=== PATIENT | female | born 1995 | race Caucasian/White ===

== ENCOUNTER → 2021-04-21 12:29 | Outpatient (CLI) | payer MEDICAID, SELFPAY ==
[2021-04-21 13:01] LABS: Absolute Lymphocyte Count 1.35 X10^3/uL (0.83-4.51); Absolute Neutrophil Count 5.9 X10^3/uL (2.0-7.7); Basophil# 0.02 X10^3/uL; Basophil% 0.3 % (0-1); Eosinophil# 0.02 X10^3/uL; Eosinophils% 0.3 % (0-5); Hematocrit 38.8 % (37-47); Hemoglobin 13.3 g/dL (12.0-15.0); Lymphocyte # 1.35 X10^3/ul (0.83-4.51); Lymphocyte % 17.4 % (19-41); Mean Corp Hgb Conc 34.3 g/dL (32-36); Mean Corpuscular Hgb 29.4 pg (27.0-32.0); Mean Corpuscular Volume 85.7 fL (81-99); Mean Platelet Vol. 11.3 fl (6.2-12.0); Monocyte# 0.46 X10^3/uL; Monocyte% 5.9 % (0-10); NRBC Flagged by Analyzer 0 % (0-5); Neutrophil # 5.86 X10^3/uL (2.7-7.7); Neutrophil % 75.7 % (47-70); Platelet Count 212 K/mm3 (150-450); RBC Distribution Width CV 12.4 % (11.6-14.6); RBC Distribution Width SD 38.5 fl (35.1-43.9); Red Blood Count 4.53 M/mm3 (4.2-5.4); White Blood Count 7.7 K/mm3 (4.4-11.0)
[2021-04-21 14:17] LABS: HIV - WCH Non-Reactive (Nonreactive); Hepatitis B Surface Antigen Non-Reactive (Nonreactive); Hepatitis C Antibody Non-Reactive (Nonreactive); Rubella IgG Non-Reactive (Nonreactive); Syphilis Antibodies Non-reactive
[2021-04-21 15:31] LABS: Amphetamine Urine VISTA NEGATIVE (<1000 ng/mL); Barbiturate Urine VISTA NEGATIVE (< 200 ng/mL); Benzodiazepine Urine VISTA NEGATIVE (< 200 ng/mL); Cocaine Urine VISTA NEGATIVE (< 300 ng/mL); Ecstacy Urine VISTA NEGATIVE (< 500 ng/mL); Methadone Urine VISTA NEGATIVE (< 300 ng/mL); PCP Urine VISTA NEGATIVE (< 25 ng/mL); THC Urine VISTA NEGATIVE (< 50 ng/mL); Vista UDS pH Range 5
[2021-04-22 16:26] LABS: V-Zoster IgG (Immunity) 860 index (Immune >165)
[2021-04-25 22:06] LABS: Chlamydia By Nucleic Acid AMP Negative (Negative)
[2021-04-25 23:20] LABS: Gonococcus By Nucleic Acid AMP Negative (Negative)
[2021-04-28 21:39] LABS: HPV Reflexed? NOT INDICATED
== END ==
PROVIDERS: Referring Provider Obstetrics & Gynecology; Visit Provider Obstetrics & Gynecology
DX: Z34.90 Encounter for supervision of normal pregnancy, unspecified, unspecified trimester (principal); Z28.3 Underimmunization status
CPT/HCPCS: 36415; 80307; 85025; 86703; 86762; 86780; 86787; 86803; 86850; 86900; 86901; 87086; 87088; 87340; 87491; 87591; 88175; G0145

== ENCOUNTER 2021-05-19 12:18 | Outpatient (CLI) | payer MEDICAID, SELFPAY ==
[2021-05-19 13:24] LABS: NATERA MAILED SPECIMEN
== END 2021-05-19 23:59 | disposition short-term general hospital (02) ==
LOC: LAB 12:21
PROVIDERS: Referring Provider Obstetrics & Gynecology; Visit Provider Obstetrics & Gynecology
DX: Z34.81 Encounter for supervision of other normal pregnancy, first trimester (principal); Z31.430 Encounter of female for testing for genetic disease carrier status for procreative management
CPT/HCPCS: 36415

== ENCOUNTER 2021-05-26 16:32 | Outpatient (CLI) | payer MEDICAID, SELFPAY ==
--- NOTE | 2021-05-26 | CER_PTH ---
PATIENT: DARLENE CHAUDHARI LOC: [facility]#:[id number] AGE/SX: 26/F ROOM: RE05/26/[address]: Dr. Emily Diamond DO : 1995 BED: DIS: 05/26/2021 SPEC #: [id number] RECD: 05/26/21 16:27 STATUS: JESSI EREN #: [id number] MARK: 05/26/21 00:[address]: Emily Diamond DEPT: SURGICAL PATHOLOGY RECD BY: Dl Bennett ENTERED: 05/27/21 08:13 SP TYPE: CERV OTHR DR: No Primary Care Phys Tissues: Uterine cervix, NOS Procedures: Surgery Specimen Level IV HEADER OPERATION: Colposcopy PRE-OP DIAGNOSIS: LGSIL TISSUE SUBMITTED: 1 o?clock MICROSCOPIC DIAGNOSIS Cervix, biopsy: Suspicious for focal HPV change. Squamous metaplasia. See comment. AM:frankie 05/30/2021 COMMENT Results from immunohistochemistry ([id number]) for surrogate HPV marker (p16) will be reported separately. Case has been reviewed in consultation with Dr. Baltazar who concurs with the above diagnosis. IDC:SJ MICROSCOPIC DESCRIPTION Slides are reviewed. GROSS DESCRIPTION Received is one container labeled with the patient's name and not further designated. The specimen consists of one irregular fragment of light galvez soft tissue that measures 0.3 x 0.3 x 0.1 cm. The specimen is totally submitted in one cassette. / SAMREEN:frankie 05/27/2021 TC:5 CPT: 24290
--- NOTE | 2021-05-26 | IMM_PTH ---
PATIENT: DARLENE CHAUDHARI LOC: [facility] U#:[id number] AGE/SX: 26/F ROOM: RE05/26/[address]: Dr. Emily Diamond DO : 1995 BED: DIS: 05/26/2021 SPEC #: [id number] RECD: 05/30/21 13:00 STATUS: JESSI EREN #: [id number] MARK: 05/26/21 00:[address]: Emily Diamond DEPT: IMMUNOHISTOCHEMISTRY RECD BY: Sandra Thomas ENTERED: 05/30/21 13:01 SP TYPE: IMMUNO OTHR DR: Nneka Primary Care Phys Tissues: Uterine cervix, NOS Procedures: p16 (initial) KI-67 (add) PHYSICIAN & INSTITUTION [place] [id number] SPECIMEN INFORMATION: Tissue Source: Cervix at 1 o?clock Clinical Info: SYLVESTERSIL Specimen Number: [id number] CPT code: 66387, 70295 METHODOLOGY: Deparaffinized sections of prefer/formalin-fixed tissue or PAP/DQ stained slides are incubated with monoclonal/polyclonal antibodies/oligonucleotide probes. Localization is made via biotin free immunoperoxidase method. Appropriate controls are performed and reacted as expected. Results on target cell population are indicated in the following table: RESULTS: ANTIBODY / CLONE RESULT P16 (E6H4) positive, rare cell Ki-67 (30-9) negative These tests were developed and their performance characteristics determined by [facility]. They may not have been cleared or approved by the U.S. Food and Drug Administration. The FDA has determined that such clearance or approval is not necessary. The above immunohistochemical/dualISH markers are ordered and reviewed by the Pathologist. INTERPRETATION: Cervix at 1 o?clock, biopsy: Suggestive of focal HPV change. AM:frankie 05/31/2021
== END 2021-05-26 23:59 | disposition short-term general hospital (02) ==
LOC: LABSPEC 16:34
PROVIDERS: Visit Provider Obstetrics & Gynecology
DX: N87.9 Dysplasia of cervix uteri, unspecified (principal)
CPT/HCPCS: 88305; 88341; 88342

== ENCOUNTER → 2021-09-08 | Outpatient (CLI) | payer MEDICAID, SELFPAY ==
[2021-09-08 10:11] LABS: Absolute Lymphocyte Count 1.35 X10^3/uL (0.83-4.51); Absolute Neutrophil Count 6.8 X10^3/uL (2.0-7.7); Basophil# 0.02 X10^3/uL; Basophil% 0.2 % (0-1); Eosinophil# 0.01 X10^3/uL; Eosinophils% 0.1 % (0-5); Hematocrit 35.9 % (37-47); Hemoglobin 11.5 g/dL (12.0-15.0); Lymphocyte # 1.35 X10^3/ul (0.83-4.51); Lymphocyte % 15.2 % (19-41); Mean Corpuscular Hgb 29.6 pg (27.0-32.0); Mean Corpuscular Volume 92.3 fL (81-99); Mean Platelet Vol. 11.4 fl (6.2-12.0); Monocyte# 0.61 X10^3/uL; Monocyte% 6.9 % (0-10); NRBC Flagged by Analyzer 0 % (0-5); Neutrophil # 6.82 X10^3/uL (2.7-7.7); Platelet Count 168 K/mm3 (150-450); RBC Distribution Width CV 13.1 % (11.6-14.6); Red Blood Count 3.89 M/mm3 (4.2-5.4); White Blood Count 8.9 K/mm3 (4.4-11.0)
[2021-09-08 10:28] LABS: Glucose Challenge Gest 1H 50g 115 mg/dL (70-140)
== END | disposition home or self-care (01) ==
LOC: LAB 10:00
PROVIDERS: Referring Provider Obstetrics & Gynecology; Visit Provider Obstetrics & Gynecology
DX: Z34.90 Encounter for supervision of normal pregnancy, unspecified, unspecified trimester (principal)
CPT/HCPCS: 36415; 82950; 85025

== ENCOUNTER → 2021-11-11 | Outpatient (CLI) | payer MEDICAID, SELFPAY | END | disposition home or self-care (01) | PROVIDERS: Referring Provider Obstetrics & Gynecology; Visit Provider Obstetrics & Gynecology | DX: Z34.90 Encounter for supervision of normal pregnancy, unspecified, unspecified trimester (principal) | CPT/HCPCS: 87081 ==

== ENCOUNTER 2021-12-02 20:25 | Inpatient (IN) | payer MEDICAID, SELFPAY ==
[2021-12-02 19:53] VITALS: BP 131/88; PULSE 111
[2021-12-02 20:01] VITALS: BMI 30.1
[2021-12-02 20:24] LABS: ROM Internal Control Test YES-OK TO RESULT pt. (Internal QC)
[2021-12-02 20:25] LABS: ROM Patient Test POSITIVE (Negative)
[2021-12-02 20:41] VITALS: TEMP 36.7
[2021-12-02 20:42] VITALS: BP 123/88; PULSE 112
[2021-12-02] MEDS: Lactated Ringers 1,000 ML 50 ML IV (21:14)
[2021-12-02] MEDS: Oxytocin 30 units/NS 500 ml 30 UNITS/500 ML IV.SOLN IV (21:15)
[2021-12-02 21:34] LABS: Absolute Lymphocyte Count 1.46 X10^3/uL (0.83-4.51); Absolute Neutrophil Count 7.1 X10^3/uL (2.0-7.7); Basophil# 0.01 X10^3/uL; Basophil% 0.1 % (0-1); Eosinophil# 0.02 X10^3/uL; Eosinophils% 0.2 % (0-5); Hematocrit 35.9 % (37-47); Hemoglobin 11.7 g/dL (12.0-15.0); Lymphocyte # 1.46 X10^3/ul (0.83-4.51); Lymphocyte % 15.5 % (19-41); Mean Corp Hgb Conc 32.6 g/dL (32-36); Mean Corpuscular Volume 89.1 fL (81-99); Mean Platelet Vol. 13.4 fl (6.2-12.0); Monocyte# 0.74 X10^3/uL; Monocyte% 7.8 % (0-10); NRBC Flagged by Analyzer 0 % (0-5); Neutrophil # 7.14 X10^3/uL (2.7-7.7); Neutrophil % 75.8 % (47-70); Platelet Count 136 K/mm3 (150-450); RBC Distribution Width CV 14.1 % (11.6-14.6); RBC Distribution Width SD 45.1 fl (35.1-43.9); Red Blood Count 4.03 M/mm3 (4.2-5.4); White Blood Count 9.4 K/mm3 (4.4-11.0)
[2021-12-02 22:05] VITALS: BP 128/82; PULSE 96; TEMP 36.9
[2021-12-02 23:32] VITALS: BP 119/69; PULSE 90; TEMP 36.1
[2021-12-03] VITALS (55 sets, daily range): BP systolic 97–145; BP diastolic 51–86; PULSE 80–118; RESP 16; TEMP 36.2–37.6; O2SAT 97–100
[2021-12-03] MEDS: fentaNYL 100 MCG/2 ML Ampul IV (02:09)
[2021-12-03] MEDS: LACTATED RINGERS 500 ML 999 ML IV (03:06)
[2021-12-03] MEDS: fentaNYL-bupivacaine (epidural) 100 ML BAG EPIDURAL (04:00)
[2021-12-03] MEDS: Lactated Ringers 1,000 ML 50 ML IV (06:48)
--- NOTE | 2021-12-03 07:20 | HP.PCM.OB_ITS ---
HPI - General General Date of Admission: 12/02/21 HPI Narrative DARLENE ANN, is a 26 y/o G1 @ 39 weeks 6 days who presents to L&D with rupture of membranes. She is not peyton. GBS is negative. She initially was found to be 2 cm dilated per nurse. Maternal Data Information NOA Calculator Estimated Delivery Date Method Current WG Current Estimate 12/03/21 LMP (Uncertain) 40w 0d PFSH PFSH Medical History Pyelectasis of fetus on ultrasound Home Medications multivitamin no.47-iron fum 27 mg-folate no.1 1 mg-dha 300 mg capsule (PNV-DHA) cap PO 04/15/21 [History Last Taken 12/01/21 21:00] Allergy/AdvReac Type Severity Reaction Status Date / Time No Known Allergies Allergy Verified 12/02/21 20:04 Family History Other CHF (congestive heart failure) Diabetes Surgical History H/O oral surgery Social History household members: significant other current occupational status: employed current occupation: [employer] pets and animals: Yes Smoking Status: Never smoker second hand exposure: No alcohol intake: current alcohol intake frequency: holidays/special occasions only details: not while substance use type: does not use caffeine: Yes seatbelt use: always do you feel safe at home: Yes additional social history: Aissatou?: Baltazar History 1 Elective abortions Hx Para 0 Spontaneous abortions Hx # Term Pregnancies Ectopic pregnancies Hx # Pregnancies Multiple births # of living children Visit Details Expected Delivery Route/Plan Labor Preferences- CB/BF classes: encouraged labor support person: Baltazar labor intervention preferences: [] pain management options preferred: limited intervention cut cord/dad catch: maybe : yes PP control planned: discussed discussed possible routes of delivery and associated risks: [] special requests: [] Plans Covid status: possible immunity counseled regarding risk of covid in vs vaccination and declined vaccination Flu vaccine: declined Tdap vaccine: declines Rhogam: na LARC form signed: yes movement and labor precautions reviewed. Problem list reviewed and updated with the most current plan of care details and appropriate orders placed. Relevant counseling for the gestational age provided. Continue routine care and follow up unless otherwise noted in visit notes/problem list details OB Flowsheet Initial Weight: 145 lb Date -?-?-?-?-?-?-?-?-?-?-?-?- EGA Weight BP Urine Prot -?-?-?-?-?-?-?-?-?-?-?-?- Glucose FHR FuHt Pres Dilation -?-?-?-?-?-?-?-?-?-?-?-?- Effaced St Visit Note 04/21/21 -?-?-?-?-?-?-?-?-?-?-?-?- 7w 5d 145 lb (+0 oz) 120/70 -?-?-?-?-?-?-?-?-?-?-?-?- 160 -?-?-?-?-?-?-?-?-?-?-?-?- SM- CRL cons wit h LMP SM- CRL 1.7cm cons with LMP 05/19/21 -?-?-?-?-?-?-?-?-?-?-?-?- 11w 5d 144 lb (-16 oz) 120/80 2+ -?-?-?-?-?-?-?-?-?-?-?-?- Negative 168 -?-?-?-?-?-?-?-?-?-?-?-?- JV- no cramping or bleeding. pt will do her NIPT today along with other labs. 05/26/21 -?-?-?-?-?-?-?-?-?-?-?-?- 12w 5d 141 lb (-4 lb) 132/88 Negative -?-?-?-?-?-?-?-?-?-?-?-?- Negative 135 -?-?-?-?-?-?-?-?-?-?-?-?- JV- here for col po. see procedure note 07/14/21 -?-?-?-?-?-?-?-?-?-?-?-?- 19w 5d 148 lb 4 oz (+3 lb 4 oz) 118/78 Negative -?-?-?-?-?-?-?-?-?-?-?-?- Negative 145 -?-?-?-?-?-?-?-?-?-?-?-?- JV- no cramping or spotting, no complaints. needs followup anatomy scan for dilated ureter 08/12/21 -?-?-?-?-?-?-?-?-?-?-?-?- 23w 6d 157 lb 8 oz (+12 lb 8 oz) 100/64 Negative -?-?-?-?-?-?-?-?-?-?-?-?- Negative 161 24 -?-?-?-?-?-?-?-?-?-?-?-?- JV- ++ mov ement, plan for rpt scan at 30 weeks of kidneys. gct ordered 09/08/21 -?-?-?-?-?-?-?-?-?-?-?-?- 27w 5d 163 lb (+18 lb) 110/72 -?-?-?-?-?-?-?-?-?-?-?-?- 147 28 -?-?-?-?-?-?-?-?-?-?-?-?- -NO VB, LOF. [facility] wk [facility] Still considering tdap 09/22/21 -?-?-?-?-?-?-?-?-?-?-?-?- 29w 5d 162 lb (+17 lb) 126/70 Negative -?-?-?-?-?-?-?-?-?-?-?-?- Negative 144 30 -?-?-?-?-?-?-?-?-?-?-?-?- MH-No Vb, LOF. R are [facility]. Reassured. Growth US 09/2910/06/21 -?-?-?-?-?-?-?-?-?-?-?-?- 31w 5d 166 lb (+21 lb) 126/88 -?-?-?-?-?-?-?-?-?-?-?-?- 145 32 Cephalic -?-?-?-?-?-?-?-?-?-?-?-?- SM- no vb lof go od fm no regular ctx 10/20/21 -?-?-?-?-?-?-?-?-?-?-?-?- 33w 5d 171 lb (+26 lb) 130/80 Negative -?-?-?-?-?-?-?-?-?-?-?-?- Negative 150 34 Cephalic -?-?-?-?-?-?-?-?-?-?-?-?- JV- no lof, vagi nal bleeding, or dec fm 11/04/21 -?-?-?-?-?-?-?-?-?-?-?-?- 35w 6d 175 lb (+30 lb) 110/82 -?-?-?-?-?-?-?-?-?-?-?-?- 145 36 Cephalic -?-?-?-?-?-?-?-?-?-?-?-?- SM- no vb lof go od fm no reuglar ctx fu with team about pyelectasis 11/11/21 -?-?-?-?-?-?-?-?-?-?-?-?- 36w 6d 174 lb 6 oz (+29 lb 6 oz) 120/72 -?-?-?-?-?-?-?-?-?-?-?-?- 135 37 Cephalic 1 -?-?-?-?-?-?-?-?-?-?-?-?- 20 -2 SM- no vb lof good fm no regular ctx 11/17/21 -?-?-?-?-?-?-?-?-?-?-?-?- 37w 5d 176 lb 4 oz (+31 lb 4 oz) 126/74 Negative -?-?-?-?-?-?-?-?-?-?-?-?- Negative 145 38 Cephalic 1 .5 -?-?-?-?-?-?-?-?-?-?-?-?- 60 -2 SM- no vb lof good fm no regular ctx 11/22/21 -?-?-?-?-?-?-?-?-?-?-?-?- 38w 3d 178 lb (+33 lb) 114/82 Negative -?-?-?-?-?-?-?-?-?-?-?-?- Negative 145 38 Cephalic -?-?-?-?-?-?-?-?-?-?-?-?- SM- no vb lof go od fm no regular ctx 11/30/21 -?-?-?-?-?-?-?-?-?-?-?-?- 39w 4d 178 lb (+33 lb) 122/72 Negative -?-?-?-?-?-?-?-?-?-?-?-?- Negative 150 39 Cephalic 2 -?-?-?-?-?-?-?-?-?-?-?-?- 80 -2 JV- no lof , vaginalbleeding , or dec fm. pt wished for membrane sweep and IOL next week if possible for fear of macrosomia (8lbs 10oz) villavicencio score is 8 ROS Constitutional Constitutional: Denies change in weight, fatigue, fever(s), headache(s), poor appetite or weakness Eyes Eyes: Denies blurry vision, change in vision, seeing flashes or spots in vision ENT HEENT: Denies dizziness, headache(s), loss taste/smell or sore throat Cardiovascular Cardiovascular: Denies chest pain, dizziness, dyspnea, irregular heart rhythm, leg edema, palpitations, rapid heart rate or vomiting Respiratory/Chest Respiratory/Chest: Denies chest tightness, cough, dyspnea or breast pain Gastrointestinal Gastrointestinal: Denies abdominal pain, anorexia, constipation, cramping, diarrhea, hemorrhoids, vomiting or weight changes Genitourinary Genitourinary: Denies dysuria, flank pain, genital lesions, genital pain, urinary frequency or urinary urgency Musculoskeletal Musculoskeletal: Denies back pain, difficulty walking, joint pain, limited range of motion, muscle cramps or numbness Integumentary Integumentary: Denies lesions or unusual bruising Neurologic Neurologic: Denies abnormal movements, abnormal speech, dizziness, numbness, seizure-like activity or syncope Psychiatric Psychiatric: Denies anxiety, behavioral changes, change in appetite, change in libido, cognitive impairment, confusion, depression, difficulty concentrating, hallucinations or suicidal thoughts Endocrine Endocrinology: Denies excessive sweating, polydipsia or polyuria Hematologic/Lymphatic Hematologic/Lymphatic: Denies easy bleeding, easy bruising or lymphadenopathy Allergic/Immunologic Allergic/Immunologic: Denies itchy eyes, lip swelling, seasonal rhinorrhea, rhinitis, throat swelling, tongue swelling, eczemia, wheezing or asthma Vital Signs Vital Signs Vital Signs: 12/02/21 19:53 12/02/21 19:53 12/02/21 20:41 Temperature Temperature Source Temporal Pulse Rate 111 H Blood Pressure 131/88 H BP Systolic 131 BP Diastolic 88 Pulse Ox 12/02/21 20:42 12/02/21 20:42 12/02/21 20:41 Temperature 98.1 F Temperature Source Pulse Rate 112 H Blood Pressure 123/88 H BP Systolic 123 BP Diastolic 88 Pulse Ox 12/02/21 22:05 12/02/21 22:05 12/02/21 22:05 Temperature Temperature Source Temporal Pulse Rate 96 Blood Pressure 128/82 H BP Systolic 128 BP Diastolic 82 Pulse Ox 12/02/21 22:05 12/02/21 23:32 12/02/21 23:32 Temperature 98.4 F Temperature Source Temporal Pulse Rate Blood Pressure 119/69 BP Systolic 119 BP Diastolic 69 Pulse Ox 12/02/21 23:32 12/02/21 23:32 12/03/21 00:39 Temperature 97.0 F L Temperature Source Pulse Rate 90 Blood Pressure 117/76 BP Systolic 117 BP Diastolic 76 Pulse Ox 12/03/21 00:39 12/03/21 00:39 12/03/21 00:39 Temperature 97.4 F L Temperature Source Temporal Pulse Rate 80 Blood Pressure BP Systolic BP Diastolic Pulse Ox 12/03/21 01:12 12/03/21 01:12 12/03/21 01:14 Temperature 98.2 F Temperature Source Temporal Pulse Rate Blood Pressure 122/83 H BP Systolic 122 BP Diastolic 83 Pulse Ox 12/03/21 01:14 12/03/21 02:09 12/03/21 02:09 Temperature Temperature Source Pulse Rate 103 H 91 Blood Pressure 133/84 H BP Systolic 133 BP Diastolic 84 Pulse Ox 12/03/21 02:10 12/03/21 02:10 12/03/21 03:01 Temperature 97.1 F L Temperature Source Temporal Pulse Rate Blood Pressure 130/82 H BP Systolic 130 BP Diastolic 82 Pulse Ox 12/03/21 03:01 12/03/21 02:59 12/03/21 02:59 Temperature 97.7 F L Temperature Source Temporal Pulse Rate 93 Blood Pressure BP Systolic BP Diastolic Pulse Ox 12/03/21 03:36 12/03/21 03:36 12/03/21 03:41 Temperature Temperature Source Pulse Rate 92 100 Blood Pressure BP Systolic BP Diastolic Pulse Ox 100 12/03/21 03:41 12/03/21 03:43 12/03/21 03:43 Temperature Temperature Source Pulse Rate 95 Blood Pressure 135/78 H BP Systolic 135 BP Diastolic 78 Pulse Ox 100 12/03/21 03:46 12/03/21 03:46 12/03/21 03:49 Temperature Temperature Source Pulse Rate 100 Blood Pressure 145/83 H BP Systolic 145 BP Diastolic 83 Pulse Ox 100 12/03/21 03:49 12/03/21 03:51 12/03/21 03:51 Temperature Temperature Source Pulse Rate 94 100 Blood Pressure BP Systolic BP Diastolic Pulse Ox 98 12/03/21 03:53 12/03/21 03:53 12/03/21 03:56 Temperature Temperature Source Pulse Rate 98 94 Blood Pressure 136/86 H BP Systolic 136 BP Diastolic 86 Pulse Ox 12/03/21 03:56 12/03/21 03:59 12/03/21 03:59 Temperature Temperature Source Pulse Rate 88 Blood Pressure 128/63 H BP Systolic 128 BP Diastolic 63 Pulse Ox 100 12/03/21 04:01 12/03/21 04:01 12/03/21 04:03 Temperature Temperature Source Pulse Rate 98 Blood Pressure 115/58 L BP Systolic 115 BP Diastolic 58 Pulse Ox 100 12/03/21 04:03 12/03/21 04:05 12/03/21 04:05 Temperature Temperature Source Pulse Rate 101 H 102 H Blood Pressure 112/56 L BP Systolic 112 BP Diastolic 56 Pulse Ox 12/03/21 04:06 12/03/21 04:06 12/03/21 04:08 Temperature Temperature Source Pulse Rate 110 H Blood Pressure 104/51 L BP Systolic 104 BP Diastolic 51 Pulse Ox 100 12/03/21 04:08 12/03/21 04:11 12/03/21 04:11 Temperature Temperature Source Pulse Rate 108 H 109 H Blood Pressure BP Systolic BP Diastolic Pulse Ox 100 12/03/21 04:14 12/03/21 04:14 12/03/21 04:16 Temperature Temperature Source Pulse Rate 90 94 Blood Pressure 119/60 BP Systolic 119 BP Diastolic 60 Pulse Ox 12/03/21 04:16 12/03/21 04:18 12/03/21 04:18 Temperature Temperature Source Pulse Rate 98 Blood Pressure 111/57 L BP Systolic 111 BP Diastolic 57 Pulse Ox 100 12/03/21 04:21 12/03/21 04:21 12/03/21 04:23 Temperature Temperature Source Pulse Rate 91 Blood Pressure 112/59 L BP Systolic 112 BP Diastolic 59 Pulse Ox 100 12/03/21 04:23 12/03/21 04:26 12/03/21 04:26 Temperature Temperature Source Pulse Rate 91 92 Blood Pressure BP Systolic BP Diastolic Pulse Ox 100 12/03/21 04:28 12/03/21 04:28 12/03/21 04:31 Temperature Temperature Source Pulse Rate 92 91 Blood Pressure 108/57 L BP Systolic 108 BP Diastolic 57 Pulse Ox 12/03/21 04:31 12/03/21 04:36 12/03/21 04:36 Temperature Temperature Source Pulse Rate 86 Blood Pressure BP Systolic BP Diastolic Pulse Ox 100 100 12/03/21 04:41 12/03/21 04:41 12/03/21 04:46 Temperature Temperature Source Pulse Rate 85 80 Blood Pressure BP Systolic BP Diastolic Pulse Ox 100 12/03/21 04:46 12/03/21 04:51 12/03/21 04:51 Temperature Temperature Source Pulse Rate 80 Blood Pressure BP Systolic BP Diastolic Pulse Ox 100 100 12/03/21 04:56 12/03/21 04:56 12/03/21 05:01 Temperature Temperature Source Pulse Rate 93 Blood Pressure 116/58 L BP Systolic 116 BP Diastolic 58 Pulse Ox 100 12/03/21 05:01 12/03/21 05:01 12/03/21 05:00 Temperature Temperature Source Temporal Pulse Rate 84 Blood Pressure BP Systolic BP Diastolic Pulse Ox 99 12/03/21 05:00 12/03/21 06:11 12/03/21 06:11 Temperature 97.1 F L Temperature Source Pulse Rate 88 Blood Pressure 124/69 H BP Systolic 124 BP Diastolic 69 Pulse Ox 12/03/21 06:11 12/03/21 06:14 12/03/21 06:14 Temperature 97.7 F L Temperature Source Temporal Pulse Rate Blood Pressure BP Systolic BP Diastolic Pulse Ox 100 12/03/21 06:11 12/03/21 06:11 Temperature 97.7 F L Temperature Source Temporal Pulse Rate Blood Pressure BP Systolic BP Diastolic Pulse Ox Weight Weight: 180 lb 15.992 oz Body Mass Index (BMI) 30.1 Physical Exam Const alert, oriented x3, no apparent distress and healthy appearing General Appearance: cooperative; Negative for anxious HEENT normocephalic Face and Sinus: normal facial exam Eyes EOMs intact bilaterally and no scleral icterus General Eye: normal appearance of both eyes Neck full ROM and supple Lymph Lymphatic: no lymphadenopathy noted Chest Chest: abnormal inspection of the chest Resp normal respiratory effort Effort and Inspection: able to speak in complete sentences Cardio regular rate GI soft to palpation and non-tender Inspection: gravid Palpation: soft; Negative for tender external exam normal Amniotic Fluid: ROM+plus Back/Spine no CVA tenderness Extremity normal to inspection, full ROM and no clubbing, cyanosis or edema General Extremity: Negative for calf tenderness or edema Skin Lesions: no lesions Rashes: no rashes Psych mental status grossly normal Labs Labs Labs: Blood Type O POSITIVE Antibody Screen NEGATIVE Hct 35.9 % (37-47) L Hgb 11.7 g/dL (12.0-15.0) L Syphilis Total Ab Non-reactive VZV IgG Antibody 860 index (Immune >165) Rubella IgG Antibody Non-Reactive (Nonreactive) Hep Bs Antigen Non-Reactive (Nonreactive) Chlamydia DNA ([facility]) Negative (Negative) Neisseria gonorrhoeae DNA ([facility]) Negative (Negative) HIV 1&2 Antibody Non-Reactive (Nonreactive) Glucose 1 Hr 50 gm 115 mg/dL (70-140) Assessment & Plan (1) Rubella non-immune status, antepartum: COMMENT: MMR pp (2) Pyelectasis of fetus on ultrasound: COMMENT: UTD A2-3 noted on most recent M US. Left renal pelvis measures 11mm with proximal calyceal dilation. Right kidney is normal. amoxicillin prophylaxis 10mg/kg per day for baby 11/24 FU growth US nl (3) LGSIL (low grade squamous intraepithelial dysplasia): (4) H/O: depression: COMMENT: related to stress- not currently taking anything. stable (5) : QUALIFIERS: Weeks of gestation: 39 weeks Qualified Code(s): Z3A.39 - 39 weeks gestation of COMMENT: anatomy nl, NIPT low risk, Carrier neg. . GBS neg (6) Supervision of normal : QUALIFIERS: Normal : normal first Trimester: third trimester Qualified Code(s): Z34.03 - Encounter for espana pervision of normal first , third trimester COMMENT: PRR NOA: 12/03/21 Marc Reyez?: Baltazar PLAN: Plan Patient presents IAL, plan expectant management for , pitocin PRN if needed. Pain management: plans epidural. GBS negative . Management of any complications: none I have reviewed the [facility] and made any clinically relevant updates.
--- NOTE | 2021-12-03 08:08 | EX.PCM.OBRPT ---
Assessment & Plan (1) Rubella non-immune status, antepartum: COMMENT: MMR pp (2) Pyelectasis of fetus on ultrasound: COMMENT: UTD A2-3 noted on most recent MFM US. Left renal pelvis measures 11mm with proximal calyceal dilation. Right kidney is normal. amoxicillin prophylaxis 10mg/kg per day for baby 11/24 FU growth US nl (3) LGSIL (low grade squamous intraepithelial dysplasia): (4) H/O: depression: COMMENT: related to stress- not currently taking anything. stable (5) : QUALIFIERS: Weeks of gestation: 39 weeks Qualified Code(s): Z3A.39 - 39 weeks gestation of COMMENT: anatomy nl, NIPT low risk, Carrier neg. . GBS neg (6) Supervision of normal : QUALIFIERS: Normal : normal first Trimester: third trimester Qualified Code(s): Z34.03 - Encounter for supervision of normal first , third trimester COMMENT: PRR NOA: 12/03/21 Marc Reyez?: Baltazar (7) Vaginal delivery: COMMENT: SM IAL boy Rahul 40 Maternal Data Information NAO Calculator Estimated Delivery Date Method Current WG Current Estimate 12/03/21 LMP (Uncertain) 40w 0d Vaginal Delivery Operative Information Date of Procedure: 12/03/21 Pre-Operative Diagnosis: IAL Post-Operative Diagnosis: same Surgery / Procedure Performed: Spontaneous Vaginal Delivery Type of Anesthesia: Epidural Special Medications: none Estimated Blood Loss: 200 Fluids Replaced: crystalloid Findings Description of Procedure: Patient began pushing and delivered the head in the TERRENCE presentation. The head was delivered atraumatically . The anterior and posterior shoulders delivered without complication followed by the rest of the and the infant was placed on the maternal abdomen. Delayed cord clamping was employed for approximately 60 seconds. Cord was clamped and cut and gentle traction was applied to the cord and the placenta delivered spontaneously immediately following it was noted to be intact with three-vessel cord. The perineum and vagina were inspected and noted to have a second degree laceration repaired i nthe usual fashion with 3-0 rapide. EBL was 200. Patient and tolerated delivery well. Presentation: TERRENCE Amniotic Membrane Rupture Type: Spontaneous Amniotic Fluid Description: Clear Placental Delivery Description: Spontaneous Placenta Disposition: [facility] Cord Vessel Description: 3 Vessels Cord Entanglement: None Infant A Gender: Male Delayed Cord Clamping: Yes Post Vaginal Delivery Medications Given After Delivery: IV Pitocin Episiotomy Description: None Laceration: Perineal Extension/lac and 2nd degree Complication Complications: None Procedures Urinary/Genital 52xxx-[id number]: 12701 Vaginal Delivery+ Care([facility])
--- NOTE | 2021-12-03 08:11 | DCINST_ITS ---
Discharge Instructions Diet Discharge Diet: No restrictions Activity Discharge Activity: Return to Normal Activity, May Drive, May Shower and May Take a Tub Bath (in 4 weeks) May resume sexual activity in: 6-8 weeks (after seen by OB provider) Weight Bearing Status: Full weight bearing Lifting Restrictions: none Dressing / Incision Call your doctor if you observe: Fever of 101 or Higher, Inability to urinate, Using more than 1 pad per hour (for more than 2 hours in a row or more), Shortness of breath, Dizziness, Chest pain and - (headache not controlled with tylenol, change in vision) Follow Up Care When: in 6 weeks for visit, call the office to make the appointment. If you had elevated blood pressures call the office to be seen within 1 week. Test Results: Test results from this visit will be discussed in further detail at your follow- up appointment, if applicable. Discharge Plan Admission Admit Date/Time: 12/02/21 20:25 Attending Provider: Emily Diamond Primary Care Provider: Care Physician,Nneka Primary Discharge Orders/Prescriptions Prescriptions: No Action PNV-DHA 27 mg iron-1 mg -300 mg capsule PO Referrals / Follow Up: Care Physician,No Primary [Primary Care Provider] - Disposition Disposition (needs filled in before D/C Order can be placed): Home, Self Care
[2021-12-03] MEDS: Oxytocin 30 units/NS 500 ml 30 UNITS/500 ML IV.SOLN 334 UNITS IV (09:09)
[2021-12-03] MEDS: Methylergonovine 0.2 MG/ML Ampul IM (10:24)
[2021-12-03] MEDS: Naproxen 500 MG Tablet PO (20:12)
[2021-12-04 00:40] VITALS: BP 103/62; PULSE 93; RESP 16; TEMP 36.1; O2SAT 96
[2021-12-04 04:42] VITALS: BP 119/81; PULSE 87; RESP 18; TEMP 36.3; O2SAT 98
--- NOTE | 2021-12-04 05:53 | NURSING ---
Pt aware of MMR non-immune status and aware of option to get MMR vaccine before discharge. Pt declines vaccine. VIS given. Yelena, RN
[2021-12-04 08:13] VITALS: BP 116/72; PULSE 86; RESP 18; TEMP 36.2; O2SAT 97
[2021-12-04] MEDS: Senna/Docusate Sodium 1 Tablet PO (08:24)
--- NOTE | 2021-12-04 09:46 | PCM.PN.OB ---
Subjective Subjective Patient doing well without complaints. Tolerating PO. Ambulating and voiding without difficulty. feeding well. Denies chest pain, shortness of breath, calf pain/swelling, fevers, chills, lightheadedness. Objective Data Objective Data Vital Signs: Vital Signs Temp Pulse Resp BP Pulse Ox O2 Del Method 97.1 F L 86 18 116/72 97 Room Air 12/04/21 08:13 12/04/21 08:13 12/04/21 08:13 12/04/21 08:13 12/04/21 08:13 12/04/21 08:13 Oxygen Delivery Method Room Air Weight: 180 lb 15.992 oz Body Mass Index (BMI) 30.1 Intake & Output: Intake and Output for Last 24 Hours 12/02/21 12/03/21 12/04/21 23:59 23:59 23:59 Intake Total 1966.57 / 1966.57 Output Total 1400 / 1400 Balance 566.57 / 566.57 Lab / Micro Data Result Diagrams: 12/02/21 21:00 Micro: Microbiology 12/02/21 21:00 Nasal Secretion SARS-CoV-2 Antigen (Rapid) - Final ROS Constitutional Constitutional: Reports systems reviewed and no addt'l complaints, except as documented Cardiovascular Cardiovascular: Reports systems reviewed and no addt'l complaints, except as documented Respiratory/Chest Respiratory/Chest: Reports systems reviewed and no addt'l complaints, except as documented Gastrointestinal Gastrointestinal: Reports systems reviewed and no addt'l complaints, except as documented Physical Exam Const alert, oriented x3 and no apparent distress HEENT Head and Scalp: atraumatic Resp normal respiratory effort GI soft to palpation and non-tender Bimanual Exam - Vag & Uterus: uterus non-tender Uterus Palpation: uterus fundus firm (below Umbilicus) Assessment & Plan (1) Vaginal delivery: COMMENT: SM IAL boy Rahul 40 (2) Rubella non-immune status, antepartum: COMMENT: MMR pp (3) LGSIL (low grade squamous intraepithelial dysplasia): PLAN: Plan s/p PPD # 1 1. routine post delivery care 2. breast feeding- support given 3. rh positive 4. rubella non immune give MMR if desired
== END 2021-12-04 14:20 | disposition home or self-care (01) | DRG 560 ==
LOC: WPOUT 20:31 → WP 20:32
PROVIDERS: Admitting Provider Obstetrics & Gynecology; Visit Provider Obstetrics & Gynecology
DX: O70.1 Second degree perineal laceration during delivery (principal); Z37.0 Single live birth; O99.891 Other specified diseases and conditions complicating pregnancy; Z3A.39 39 weeks gestation of pregnancy; R87.612 Low grade squamous intraepithelial lesion on cytologic smear of cervix (LGSIL); Z86.59 Personal history of other mental and behavioral disorders
CPT/HCPCS: 59025; 84112; 85025; 86850; 86900; 86901; 87811; 99218; J7120; G0378

== ENCOUNTER → 2022-01-19 | Outpatient (CLI) | payer MEDICAID, SELFPAY ==
[2022-03-27 18:54] LABS: HPV Reflexed? NOT INDICATED
== END | disposition home or self-care (01) ==
LOC: LABSPEC 16:44
PROVIDERS: Visit Provider Obstetrics & Gynecology
DX: Z12.4 Encounter for screening for malignant neoplasm of cervix (principal)
CPT/HCPCS: 88175; G0145

== ENCOUNTER 2023-03-13 09:26 | Emergency (ER) | payer MEDICAID, SELFPAY ==
[2023-03-13 09:26] VITALS: BP 127/106; PULSE 102; RESP 14; TEMP 36.4; O2SAT 98; BMI 23.3
--- NOTE | 2023-03-13 09:43 | EDS_ITS ---
HPI History of Present Illness Chief Complaint: Dental Informant: patient Narrative Narrative: 28-year-old female presenting to the emergency department chief complaint of dental pain. Patient states that for the past month she has been having increasing pain on the right jaw all radiating up into her head and ear and down towards the neck. She states that she is called multiple dental clinics and has been put on the wait list. She has Medicaid which is complicating her ability to be seen. She has tried numerous home remedies eluding aspirin, clove oil, and ibuprofen. She is a non-smoker. She is currently breast-feeding. She does have assistance in the evenings with childcare. She denies chest pain shortness of breath. No fever. [facility] Medical History Pyelectasis of fetus on ultrasound Vaginal delivery Home Medications multivitamin no.47-iron fum 27 mg-folate no.1 1 mg-dha 300 mg capsule (PNV-DHA) cap PO 04/15/21 [History Last Taken 12/01/21 21:00] Allergy/AdvReac Type Severity Reaction Status Date / Time No Known Allergies Allergy Verified 03/13/23 09:26 Family History Other CHF (congestive heart failure) Diabetes Surgical History H/O oral surgery Social History household members: significant other current occupational status: employed current occupation: [employer] pets and animals: Yes Smoking Status: Never smoker second hand exposure: No alcohol intake: current alcohol intake frequency: holidays/special occasions only details: not while substance use type: does not use caffeine: Yes seatbelt use: always do you feel safe at home: Yes additional social history: Fiira?: Bal[facility] ED Constitutional Constitutional ED: Denies chills or weight loss Eyes Eyes: Denies change in vision or diplopia ENT ENT ED: Reports ear pain and other Details: Right mandibular pain ; Denies rhinorrhea or sore throat Cardiovascular Cardiovascular: Denies chest pain, orthopnea, palpitations or racing heartbeat Respiratory/Chest Respiratory/Chest: Denies cough, dyspnea or orthopnea Gastrointestinal Gastrointestinal: Denies abdominal pain, diarrhea, nausea or vomiting Genitourinary Genitourinary ED: Denies dysuria, hematuria or urinary frequency Musculoskeletal Musculoskeletal: Reports neck pain; Denies arthralgias or myalgias Integumentary Denies abscess or rash Neurologic Neurologic: Denies headache(s) or weakness Psychiatric Psychiatric: Denies anxiety, depression, suicidal ideation or suicidal thoughts Endocrine Endocrinology: Denies polydipsia, polyphagia or polyuria Allergic/Immunologic Allergic/Immunologic ED: Denies mouth swelling, tongue swelling or urticaria EXAM Physical Exam Const Vital Signs: 03/13/23 09:26 Temperature 97.6 F L Temperature Source Temporal Pulse Rate 102 H Respiratory Rate 14 Blood Pressure 127/106 H Blood Pressure Mean 113 Pulse Ox 98 Oxygen Delivery Method Room Air Positive well nourished and well developed General Appearance ED: well developed HEENT Reports normocephalic, head/scalp atraumatic and moist mucous membranes HEENT Narrative: Patient has overall good dentition. She notes tenderness to palpation over the lower right molar. I do not appreciate any abscess, trismus, gingivitis, floor the mouth swelling, or facial swelling/erythema. Eyes PERRL and EOMs intact bilaterally Neck no lymphadenopathy, supple and no JVD Resp normal respiratory effort and clear to auscultation bilaterally Cardio regular rate, regular rhythm and no murmurs GI normal to inspection, nondistended, normoactive bowel sounds and non-tender Palpation: soft Back/Spine no CVA tenderness and normal ROM Extremity normal to inspection General Extremety ED: Negative for edema General Extremity: Negative for edema Neuro oriented x3 and CN's II-XII intact bilaterally Sensorium / Orientation: alert Motor Exam: strength 5/5 throughout Psych mental status grossly normal Mood & Affect: Negative for depressed or tearful Skin no rashes or lesions noted and no wounds MDM MDM MDM Narrative Medical decision making narrative: I will write for the patient to be started on penicillin. I will write for Motrin 800 mg 3 times a day as needed as well as a few Ralls. Patient was advised on risk benefits of Ralls especially while caring for a child and breast-feeding. She understands these risk and was encouraged to have discussion with her pharmacist as well as family to help with childcare. Discharge Plan Triage Chief Complaint: Dental ED Provider: Shiv Melara Dx/Rx/DC Orders Prescriptions: No Action PNV-DHA 27 mg iron-1 mg -300 mg capsule PO Primary Care Provider: Care Physician,No Primary Referrals: Care Physician,No Primary [Primary Care Provider] -
== END 2023-03-13 10:07 | disposition home or self-care (01) ==
LOC: ED 09:58
PROVIDERS: Emergency Provider Emergency Medicine; PCP Family Medicine; Visit Provider Emergency Medicine
DX: K08.89 Other specified disorders of teeth and supporting structures (principal)
CPT/HCPCS: 99282

== ENCOUNTER → 2024-10-31 | Outpatient (CLI) | payer MEDICAID, SELFPAY ==
[2024-11-03 19:08] LABS: Chlamydia By Nucleic Acid AMP Negative (Negative); Gonococcus By Nucleic Acid AMP Negative (Negative)
== END | disposition home or self-care (01) ==
LOC: LABSPEC 16:15
PROVIDERS: Referring Provider Obstetrics & Gynecology; Visit Provider Obstetrics & Gynecology
DX: Z34.90 Encounter for supervision of normal pregnancy, unspecified, unspecified trimester (principal); Z12.4 Encounter for screening for malignant neoplasm of cervix
CPT/HCPCS: 87086; 87491; 87591; 88175; G0145

== ENCOUNTER → 2024-11-03 | Outpatient (CLI) | payer MEDICAID, SELFPAY ==
[2024-11-03 17:15] LABS: Absolute Lymphocyte Count 1.45 X10^3/uL (0.83-4.51); Absolute Neutrophil Count 5.4 X10^3/uL (2.0-7.7); Basophil# 0.01 X10^3/uL; Basophil% 0.1 % (0-1); Eosinophil# 0.03 X10^3/uL; Eosinophils% 0.4 % (0-5); Hematocrit 37.3 % (37-47); Hemoglobin 12.7 g/dL (12.0-15.0); Lymphocyte # 1.45 X10^3/ul (0.83-4.51); Lymphocyte % 19.8 % (19-41); Mean Corpuscular Hgb 29.6 pg (27.0-32.0); Mean Corpuscular Volume 86.9 fL (81-99); Mean Platelet Vol. 11.6 fl (6.2-12.0); Monocyte# 0.38 X10^3/uL; Monocyte% 5.2 % (0-10); NRBC Flagged by Analyzer 0 % (0-5); Neutrophil # 5.44 X10^3/uL (2.7-7.7); Neutrophil % 74.2 % (47-70); Platelet Count 200 K/mm3 (150-450); RBC Distribution Width CV 12.7 % (11.6-14.6); RBC Distribution Width SD 39.9 fl (35.1-43.9); Red Blood Count 4.29 M/mm3 (4.2-5.4); White Blood Count 7.3 K/mm3 (4.4-11.0)
[2024-11-03 17:58] LABS: HIV Nonreactive (Nonreactive); Hepatitis B Surface Antigen Nonreactive (Nonreactive); Hepatitis C Antibody Nonreactive (Nonreactive); Rubella IgG Nonreactive (Nonreactive); Syphilis Antibodies Nonreactive (Nonreactive)
== END | disposition home or self-care (01) ==
PROVIDERS: Referring Provider Obstetrics & Gynecology; Visit Provider Obstetrics & Gynecology
DX: Z34.90 Encounter for supervision of normal pregnancy, unspecified, unspecified trimester (principal)
CPT/HCPCS: 36415; 85025; 86703; 86762; 86780; 86803; 86850; 86900; 86901; 87340

== ENCOUNTER → 2024-12-05 | Outpatient (CLI) | payer MEDICAID, SELFPAY ==
--- NOTE | 2024-12-05 13:09 | US_ITS ---
EXAM: Left axillary ultrasound CLINICAL HISTORY: Left axillary palpable mass COMPARISON: No TECHNIQUE: Real-time ultrasound of the left axilla FINDINGS: There is normal accessory breast tissue in the left axillary region. There is no concerning abscess, mass or cyst. US/Axilla - Left IMPRESSION: No significant findings. Reading Location: [facility]
== END | disposition home or self-care (01) ==
LOC: US 13:07
PROVIDERS: PCP Family Medicine; Referring Provider Advanced Practice Midwife; Visit Provider Advanced Practice Midwife
DX: N63.32 Unspecified lump in axillary tail of the left breast (principal)
CPT/HCPCS: 76882

== ENCOUNTER → 2025-02-25 | Outpatient (CLI) | payer MEDICAID, SELFPAY ==
[2025-02-25 12:32] LABS: Hematocrit 34.7 % (37-47); Hemoglobin 11.5 g/dL (12.0-15.0); Immature Granulocytes Count 0.050 X10^3/uL (0.0-0.0); Mean Corp Hgb Conc 33.1 g/dL (32-36); Mean Corpuscular Volume 89.2 fL (81-99); Mean Platelet Vol. 12.4 fl (6.2-12.0); NRBC Flagged by Analyzer 0 % (0-5); Platelet Count 188 K/mm3 (150-450); RBC Distribution Width CV 13.4 % (11.6-14.6); RBC Distribution Width SD 43.5 fl (35.1-43.9); Red Blood Count 3.89 M/mm3 (4.2-5.4); White Blood Count 7.8 K/mm3 (4.4-11.0)
[2025-02-25 13:32] LABS: Glucose Challenge Gest 1H 50g 150 mg/dL (70-140); HIV Nonreactive (Nonreactive); Syphilis Antibodies Nonreactive (Nonreactive)
== END | disposition home or self-care (01) ==
PROVIDERS: Nurse Practitioner Women's Health; PCP Family Medicine; Visit Provider Obstetrics & Gynecology
DX: Z34.90 Encounter for supervision of normal pregnancy, unspecified, unspecified trimester (principal); Z13.1 Encounter for screening for diabetes mellitus
CPT/HCPCS: 36415; 82950; 85025; 86703; 86780

== ENCOUNTER → 2025-03-10 | Outpatient (CLI) | payer BC, MEDICAID, SELFPAY ==
--- OUTSIDE RECORDS SUMMARY | 2025-03-10 07:02 | XMS RPT_ITS | CCD ---
Author Organization [facility] Care Team Providers Care Travel Pta Name Role Phone Care Physician, No Primary Primary Care Provider Unavailable Care Physician, No Primary Referring Provider Un available Dr. Emily Diamond Attending Provider Brianne POLYMER SCIENTIST, JOSE ALEJANDRO Cross Attending Provider [phone] Care Physician, No Primary Primary Care Provider Unavailable Care Physician, No Primary Referring Provider Un available Dr. Emily Diamond Attending Provider Dr. Katiana Valles Attending Provider [phone] Dr. Emily Diamond Admit Provider Dr. Emily Diamond Other Provider Dr. Katiana Valles MD Attending Provider Dr. Katiana Valles MD Referring Provider Corrie Johnson CNM Attending Provider Corrie Johnson CNM Referring Provider Dr. Yesi Hughes MD Primary Care Provider Dr. Emily Diamond DO Attending Provider Dr. Yesi Hughes MD Referring Provider NO PRIMARY CARE, Primary Care Unavailable OSKAR ORTEGA Attending Unavailable CORRIE JOHNSON Referring Unavailable Dr. Katiana Valles MD Attending Physician Corrie Johnson CNM Attending Physician Dr. Yesi Hughes MD Primary Care Physician Dr. Emily Diamond DO Attending Physician Brianne POLYMER SCIENTIST-CDarlene Attending Physician [phone] Katiana Valles Referring Unavailable Katiana Valles Attending Unavailable Brianne POLYMER SCIENTIST, Darlene Attending Unavailable Tianna Baldwin Primary Care Unavailable Brianne POLYMER SCIENTIST, Darlene Referring Unavailable Corrie Johnson Referring Unavailable Corrie Johnson Attending Unavailable Jolliff, Yesi S Primary Care Unavailable Katiana Valles Attending Unavailable Jolliff, Yesi S Primary Care Unavailable Corrie Johnson Attending Unavailable Emily Diamond Attending Unavailabl e Jolliff, Yesi S Primary Care Unavailable Jolliff, Yesi S Referring Unavailable Jolliff, Yesi S Primary Care Unavailable Brianne POLYMER SCIENTIST, Darlene Attending Unavailable Jolliff, Yesi S Referring Unavailable Brianne POLYMER SCIENTIST, Darlene Attending Unavailable Jolliff, Yesi S Primary Care Unavailable Jolliff, Yesi S Referring Unavailable Katiana Valles Attending Unavailable Katiana Valles Referring Unavailable Katiana Valles Attending Unavailable Medications Current Medications Medication Drug Class(es) Dates Sig (Normalized) Sig (Original) Multivit 96-Azdh-Elfigb 1-Dha (Pnv-Dha) 27 mg iron-1 mg -300 mg capsule (11 sources) Start: 04-15-2021 Multivit 03-Jmlk-Chkqvi 1-Dha (Pnv-Dha) 27 mg iron-1 mg -300 mg capsule Active CAP PO April 15, 2021 3:19pm Start: 04-15-2021 End: 10-10-2024 Multivit 35-Nobs-Xilwqe 1-Dh a (Pnv-Dha) 27 mg iron-1 mg -300 mg capsule Discontinued NMA PO April 15, 2021 1:00am October 10, 2024 10:09am Start: 04-15-2021 Multivit 47-Ir on-Folate 1-Dha (Pnv-Dha) 27 mg iron-1 mg -300 mg capsule Active CAP PO April 15, 2021 1:00am Mv-Mins 28-Lqhu-Xaqzm No.1-D lozada (Pnv-[place]) 28-1-300 mg capsule (7 sources) Start: 10-10-2024 Mv-Mins 71-Iro n-Folic No.1-Dha (Pnv-[place]) 28-1-300 mg capsule Active NMA PO October 10, 2024 12:00am Complies with drug therapy Start: 10-10-2024 Mv-Mins 71-Iro n-Folic No.1-Dha (Pnv-[place]) 28-1-300 mg capsule Active NMA PO October 10, 2024 12:00am Completed/Discontinued Medications Medication Drug Class(es) Dates Sig (Normalized) Sig (Original) acetaminophen 325 mg / HYDROcodone bitartrate 5 mg oral tablet (8 sources) Opioid Agonist Start: 03-13-2023 End: 10-10-2024 Hydrocodone-Acetami nophen 5-325 mg tablet Discontinued 1 {tbl} PO EVERY 6 HOURS NEEDED as needed for Pain 12 3 0 March 13, 2023 October 10, 2024 10:09am Toothache Other specified disorders of teeth and supporting structures Start: 03-13-2023 take 1 tablet by valdez th every six hours as needed Hydrocodone-Acetaminophen Active 1 TABLE T PO EVERY 6 HOURS NEEDED 12 3 March 13, 2023 ibuprofen 600 mg oral tablet (8 sources) Nonsteroidal Anti-inflammatory Drug Start: 03-13-2023 End: 10-10-2024 take 1 tablet by mouth every six hours as needed for pain Ibuprofen 600 mg tablet Discontinued 600 mg PO EVERY 6 HOURS NEEDED as needed for pain 20 0 March 13, 2023 12:00am October 10, 2024 10:09am penicillin v potassium 250 mg oral tablet (8 sources) Start: 03-13-2023 End: 10-10-2024 Penicillin V Potassium 250 mg tablet Discontinued 500 mg PO 4 TIMES DAILY 40 0 March 13, 2023 12:00am October 10, 2024 10:09am Start: 03-13-2023 take 500 mg by mouth four times daily Penicillin V Potassium Active 500 MG PO 4 TIMES DAILY 40 March 13, 2023 12:00am Problems Active Problems Problem Classification Problem Date Documented Date Episodic/Chronic Disorders of teeth and jaw (16 sources) Toothache; Translations: [Other specified disorders of teeth and supporting structures] 03-13-2023 Episodic Nonmalignant breast conditions (1 source) Unspecified lump in axillary tail of the left breast; Translations: [Unspecified lump in axillary tail of the left breast] Onset: 12-11-2024 Episodic Other complications of ; puerperium affecting management of mother (11 sources) ultrasound scan abnormal; Translations: [Maternal care for other (suspected) abnormality and damage, not applicable or unspecified] 12-03-2021 Episodic Comment on above: UTD A2-[address] recent MFM US. Left renal pelvis measures 11mm with proximal calyceal dilation. Right kidney is normal. amoxicillin prophylaxis 10mg/kg per day for baby14 FU growth US nl Other complications of ; puerperium affecting management of mother (20 sources) Maternal care for other (suspected) abnormality and damage, not applicable or unspecified; Translations: [Abnormal finding on screening] Episodic Other complications of (8 sources) Rubella non-immune; Translations: [Supervision of other high risk pregnancies, unspecified trimester] 09-22-2021 Episodic Comment on above: MMR pp Other complications of (13 sources) Supervision of other high risk pregnancies, unspecified trimester; Translations: [Other specified complications of , antepartum condition or complication] Onset: 01-05-2025 Episodic Other and delivery including normal (20 sources) Normal ; Translations: [Encounter for supervision of normal , unspecified, unspecified trimester] Onset: 03-07-2025 Episodic Comment on above: SM IAL sarmad Geen 40 , NOA 05/27/25, P Aissatou Villatoro PRR NOA: 2 Boy Rahul Aissatou : [employer]tazar elects NIPT with gen salima, previous carrier testing negative anatomy nl, NIPT low risk, Carrier neg. . GBS neg MMR pp elects NIPT: low ris k, male, previous carrier testing negative Other screening for suspected conditions (not mental disorders or infectious disease) (2 sources) Encounter for screening for diabetes mellitus; Translations: [Encounter for screening for malignant neoplasm of cervix] Onset: 01-05-2025 Episodic Residual codes; unclassified (20 sources) Abnormal cytology findings; Translations: [Low grade squamous intraepithelial lesion (LGSIL)] Episodic Comment on above: colp CINI, repeat pa p hpv 03/05 colp CINI, repeat pa p hpv 03/05. 10/2024 neg. rpt 1 yr Screening and history of mental health and substance abuse codes (20 sources) H/O: depression; Translations: [Personal history of other mental and behavioral disorders] Episodic Comment on above: related to stress- n ot currently taking anything. stable Unclassified (1 source) Other underimmunization status; Translations: [Other underimmunization status] Onset: 01-05-2025 Past or Other Problems Problem Classification Problem Date Documented Da te Episodic/Chronic Residual codes; unclassified (1 source) 14 weeks gestation of ; Translations: [14 weeks gestation of ] Onset: 12-01-2024 Episodic Results Test Name Value Interpretation Reference Range Facility CBC W/Diff, Automatedon 10 Absolute Lymph 1.48 X10 3/uL Normal 0.83-4.51 [facility] Comment on above: Performed By: #### L 509.8002, L3890.6006, L501.0250, L100.0100 ####[facility] [address] [place], [address] Absolute Neut 5.8 X10 3/uL Normal 2.0-7.7 [facility] Comment on above: Performed By: #### L 509.8002, L3890.6006, L501.0250, L100.0100 ####[facility] [address] [place], [address] Basophils/100 WBC (Bld) 0.3 % Normal 0-1 [facility] Comment on above: Performed By: #### L 509.8002, L3890.6006, L501.0250, L100.0100 ####[facility] [address] [place], [address] Eosinophils/100 WBC (Bld) 0.8 % Normal 0-5 [facility] Comment on above: Performed By: #### L 509.8002, L3890.6006, L501.0250, L100.0100 ####[facility] [address] [place], [address] Erythrocyte distribution width (RBC) [Ratio] 13.4 % Normal 11.6-14.6 [facility] Comment on above: Performed By: #### L 509.8002, L3890.6006, L501.0250, L100.0100 ####[facility] [address] [place], [address] Hematocrit (Bld) [Volume fraction] 34.7 % Low 37-47 [facility] Comment on above: Performed By: #### L 509.8002, L3890.6006, L501.0250, L100.0100 ####[facility] [address] [place], [address] Hemoglobin (Bld) [Mass/Vol] 11.5 g/dL Low 12.0-15.0 [facility] Comment on above: Performed By: #### L 509.8002, L3890.6006, L501.0250, L100.0100 ####[facility] [address] [place], [address] IG% 0.600 Normal 0.0-0.9 [facility] Comment on above: Result Comment: IG% - Immature Granulocytes (promyelocytes, myelocytes and metamyelocytes) > 1% indicates that a LEFT SHIFT is Present. Performed By: #### L 509.8002, L3890.6006, L501.0250, L100.0100 ####[facility] [address] [place], [address] Lymphocytes/100 WBC (Bld) 19.0 % Normal 19-41 [facility] Comment on above: Performed By: #### L 509.8002, L3890.6006, L501.0250, L100.0100 ####[facility] [address] [place], [address] MCH (RBC) [Entitic mass] 29.6 pg Normal 27.0-32.0 [facility] Comment on above: Performed By: #### L 509.8002, L3890.6006, L501.0250, L100.0100 ####[facility] [address] [place], [address] MCHC (RBC) [Mass/Vol] 33.1 g/dL Normal 32-36 [facility] Comment on above: Performed By: #### L 509.8002, L3890.6006, L501.0250, L100.0100 ####[facility] [address] [place], [address] MCV (RBC) [Entitic vol] 89.2 fL Normal 81-99 [facility] Comment on above: Performed By: #### L 509.8002, L3890.6006, L501.0250, L100.0100 ####[facility] [address] [place], [address] Monocytes/100 WBC (Bld) 5.3 % Normal 0-10 [facility] Comment on above: Performed By: #### L 509.8002, L3890.6006, L501.0250, L100.0100 ####[facility] [address] [place], [address] Neutrophils/100 WBC (Bld) 74.0 % High 47-70 [facility] Comment on above: Performed By: #### L 509.8002, L3890.6006, L501.0250, L100.0100 ####[facility] [address] [place], [address] Nucleated RBC (Bld) [#/Vol] 0 10*3/uL Normal 0-5 [facility] Comment on above: Performed By: #### L 509.8002, L3890.6006, L501.0250, L100.0100 ####[facility] [address] [place], [address] Platelet mean volume (Bld) [Entitic vol] 12.4 fL High 6.2-12.0 [facility] Comment on above: Performed By: #### L 509.8002, L3890.6006, L501.0250, L100.0100 ####[facility] [address] [place], [address] Platelets (Bld) [#/Vol] 188 10*3/uL Normal 150-450 [facility] Comment on above: Performed By: #### L 509.8002, L3890.6006, L501.0250, L100.0100 ####[facility] [address] [place], [address] RBC (Bld) [#/Vol] 3.89 10*6/uL Low 4.2-5.4 [facility] Comment on above: Performed By: #### L 509.8002, L3890.6006, L501.0250, L100.0100 ####[facility] [address] [place], [address] RDW SD 43.5 fl Normal 35.1-43.9 [facility] Comment on above: Performed By: #### L 509.8002, L3890.6006, L501.0250, L100.0100 ####[facility] [address] [place], [address] WBC (Bld) [#/Vol] 7.8 10*3/uL Normal 4.4-11.0 [place] Comment on above: Performed By: #### L 509.8002, L3890.6006, L501.0250, L100.0100 ####[facility] [address] [place], [address] Glucose Challenge Gest 1H 50 fabian 02-25-2025 GLU GEST 50g 1H 150 mg/dL High 70-140 [facility] Comment on above: Performed By: #### L 509.8002, L3890.6006, L501.0250, L100.0100 ####[facility] [address] [place], [address] HIVon 02-25-2025 HIV Non-Reactive Normal Nonreactive [facility] Comment on above: Result Comment: Non- Reactive Reactive Repeatedly reactive samples must be confirmed according to CDC recommended confirmatory algorithms. The subresults for either HIVAG or AHIV can be used as an aid in the selection of the confirmation algorithm for reactive samples. Send out specimens with Reactive results to [facility] for confirmation. Order the HIV antibody detection and differentiation: [id number] Performed By: #### L 509.8002, L3890.6006, L501.0250, L100.0100 ####[facility] [address] [place], [address] Scout Office Visit Reporton 02-25-2025 Scout Office Visit Report [facility] [address], [address] [place] [address] OFFICE VISIT Date of Service: 02/25/25 MR#: [id number] Acct: [id number] Name: DARLENE ANN Rep #: [id number] 3 : 1995 Provider: JOSE ALEJANDRO chase Age/Sex: 30/F Location: [facility] Status: Signed Intake Vital Signs 12/31/24 10:23 01/28/25 10:03 02/25/25 08:44 Height 5 ft 5 in 5 ft 5 in 5 ft 5 in Weight: 167 lb 1 oz BMI 27.8 BP 118/80 Intake Visit Reasons: 27wk ob/glucose Sales And Service Change Leader Required: No Is patient in pain?: No Allergies No Known Allergies Allergy (Verified 02/25/25 08:42) Medications ???Medication ???Instructions ???Recorded ???Confirmed ???Type multivit-min no.71-iron fum 28 cap PO 10/10/24 02/25/25 History mg-folate no.1 1 mg-dha 300 mg capsule (PNV-[place]) Last Menstrual Period: 08/20/24 Zika: Zika virus screening: Negative : Yes PFSH PFS Medical History Vaginal delivery Pyelectasis of fetus on ultrasound Surgical History H/O oral surgery Family History Father CHF (congestive heart failure) Diabetes Grandmother CHF (congestive heart failure) paternal Social History adopted: No household members: significant other and children number of children: 1 current occupational status: employed current occupation: [employer] current occupational exposures/hazards: No pets and animals: Yes (Avoid litterbox) pets and animals: cat(s) and dog(s) history of recent travel: No sexually active: Yes Smoking Status: Never smoker second hand exposure: No alcohol intake: current alcohol intake frequency: holidays/special occasions only details: not while substance use type: does not use well-balanced diet: daily or most days caffeine: Yes Type: carbonated beverages Number of servings: 1 eating out: 1-3 times/week during the past year weight has: remained stable what type of physical activity do you participate in: yoga frequency: 1-2 times per week duration: 15-30 minutes/day wolf/denominational: Hinduism seatbelt use: always do you feel safe at home: Yes additional social history: Fianc???: [employer] - Ex[employer]ation History 2 Elective abortions Hx Para 1 Spontaneous abortions Hx # Term Pregnancies Ectopic pregnancies Hx # Pregnancies Multiple births # of living children 1 Past Pregnancies Del. Date Name GA/Weeks Outcome Route Bth Weight Gen Labor Lgth Anesthesia Del Locatn Provider FOB 12/03/21 Rahul 40 live - full term 8#9oz Male epidural [facility] mary ann Hai Ledesma Delivery Date: 12/03/21 Last Updated by: Oneyda Louise see problem list for complications, and IAL 40 SM boy Rahul HPI 27wk ob/glucose Details: DARLENE ANN is a 30 year old who presents for routine OB visit. OB Visit NOA Calculator Estimated Delivery Date Method Current WG Current Estimate 05/27/25 LMP (Certain) 27w 0d Other Estimates 05/30/25 Ultrasound #1 26w 4d Expected Delivery Route/Plan Labor Preferences- CB/BF classes: no labor support person: Baltazar labor intervention preferences: [] pain management options preferred: epidural if requested cut cord/dad catch: cord : yes PP control planned: discussed discussed possible routes of delivery and associated risks: [] special requests: [] Specific Issue/Plans Covid status: [] Flu vaccine: declines Tdap vaccine: declines Rhogam: na LARC form signed: yes Problem list reviewed and updated with the most current plan of care details and appropriate orders placed. Relevant counseling for the gestational age provided. Continue routine care and follow up unless otherwise noted in visit notes/problem list details Initial Weight: Not Recorded Date -???-???-???-???-?? ?-???-???-???-???-? ??-???-???- EGA Weight BP Urine Prot -???-???-???-???-?? ?-???-???-???-???-? ??-???-???- Glucose FHR FuHt Pres Dilation -???-???-???-???-?? ?-???-???-???-???-? ??-???-???- Effaced St Visit Note 10/31/24 -???-???-???-???-?? ?-???-???-???-???-? ??-???-???- 10w 2d 154 lb 2 oz 119/80 -???-???-???-???-?? ?-???-???-???-???-? ??-???-???- 160 -???-???-???-???-?? ?-???-???-???-???-? ??-???-???- SM- CRL 3cm cons with LMP 12/01/24 -???-???-???-???-?? ?-???-???-???-???-? ??-???-???- 14w 5d 152 lb 6 oz 109/75 Negative -???-???-???-???-?? ?-???-???-???-???-? ??-???-???- Negative 158 -???-???-???-???-?? ?-???-???-???-???-? ??-???-???- KW- no vb/cr amping. +flutters. has a lump under her left axi (more content not included)... Normal [facility] Syphilis Antibodieson 2024 Syphilis Abs Non-Reactive Normal Nonreactive [facility] Comment on above: Performed By: #### L 509.8002, L3890.6006, L501.0250, L100.0100 ####[facility] [address] [place], [address] Scout Office Visit Reporton 01-28-2025 Scout Office Visit Report [facility] [address], [address] [place] [address] OFFICE VISIT Date of Service: 01/28/25 MR#: [id number] Acct: [id number] Name: MARISSAMARLENITonia CALLE Rep #: [id number] 5 : 1995 Provider: JOSE ALEJANDRO chase Age/Sex: 30/F Location: [facility] [place] Status: Signed Intake Vital Signs 10/31/24 14:32 12/31/24 10:23 01/28/25 10:03 Height 5 ft 5 in 5 ft 5 in 5 ft 5 in Weight: 160 lb 8 oz BMI 26.6 BP 101/74 Intake Visit Reasons: 23wk ob Chief Complaint: 23 Week OB Sales And Service Change Leader Required: No Is patient in pain?: No Allergies No Known Allergies Allergy (Verified 01/28/25 10:06) Medications ???Medication ???Instructions ???Recorded ???Confirmed ???Type multivit-min no.71-iron fum 28 cap PO 10/10/24 01/28/25 History mg-folate no.1 1 mg-dha 300 mg capsule (PNV-[place]) Last Menstrual Period: 08/20/24 Zika: Zika virus screening: Negative : No PFSH PFSH Medical History Vaginal delivery Pyelectasis of fetus on ultrasound Surgical History H/O oral surgery Family History Father CHF (congestive heart failure) Diabetes Grandmother CHF (congestive heart failure) paternal Social History adopted: No household members: significant other and children number of children: 1 current occupational status: employed current occupation: [employer] current occupational exposures/hazards: No pets and animals: Yes (Avoid litterbox) pets and animals: cat(s) and dog(s) history of recent travel: No sexually active: Yes Smoking Status: Never smoker second hand exposure: No alcohol intake: current alcohol intake frequency: holidays/special occasions only details: not while substance use type: does not use well-balanced diet: daily or most days caffeine: Yes Type: carbonated beverages Number of servings: 1 eating out: 1-3 times/week during the past year weight has: remained stable what type of physical activity do you participate in: yoga frequency: 1-2 times per week duration: 15-30 minutes/day wolf/denominational: Hinduism seatbelt use: always do you feel safe at home: Yes additional social history: Fianc???: [employer] - [employer] History 2 Elective abortions Hx Para 1 Spontaneous abortions Hx # Term Pregnancies Ectopic pregnancies Hx # Pregnancies Multiple births # of living children 1 Past Pregnancies Del. Date Name GA/Weeks Outcome Route Bth Weight Gen Labor Lgth Anesthesia Del Locatn Provider FOB 12/03/21 Rahul 40 live - full term 8#9oz Male epidural [facility] mary ann Ledesma Delivery Date: 12/03/21 Last Updated by: Oneyda Louise see problem list for complications, and IAL 40 SM boy Rahul HPI 23wk ob Details: DARLENE ANN is a 30 year old who presents for routine OB visit. OB Visit NOA Calculator Estimated Delivery Date Method Current WG Current Estimate 05/27/25 LMP (Certain) 23w 0d Other Estimates 05/30/25 Ultrasound #1 22w 4d Expected Delivery Route/Plan Labor Preferences- CB/BF classes: [] labor support person: [] labor intervention preferences: [] pain management options preferred: [] cut cord/dad catch: [] : [] PP control planned: [] discussed possible routes of delivery and associated risks: [] special requests: [] Specific Issue/Plans Covid status: [] Flu vaccine: [] Tdap vaccine: [] Rhogam: [] LARC form signed: [] Problem list reviewed and updated with the most current plan of care details and appropriate orders placed. Relevant counseling for the gestational age provided. Continue routine care and follow up unless otherwise noted in visit notes/problem list details Initial Weight: Not Recorded Date -???-???-???-???-?? ?-???-???-???-???-? ??-???-???- EGA Weight BP Urine Prot -???-???-???-???-?? ?-???-???-???-???-? ??-???-???- Glucose FHR FuHt Pres Dilation -???-???-???-???-?? ?-???-???-???-???-? ??-???-???- Effaced St Visit Note 10/31/24 -???-???-???-???-?? ?-???-???-???-???-? ??-???-???- 10w 2d 154 lb 2 oz 119/80 -???-???-???-???-?? ?-???-???-???-???-? ??-???-???- 160 -???-???-???-???-?? ?-???-???-???-???-? ??-???-???- SM- CRL 3cm cons with LMP 12/01/24 -???-???-???-???-?? ?-???-???-???-???-? ??-???-???- 14w 5d 152 lb 6 oz 109/75 Negative -???-???-???-???-?? ?-???-???-???-???-? ??-???-???- Negative 158 -???-???-???-???-?? ?-???-???-???-???-? ??-???-???- KW- no vb/cr amping. +flutters. has a lump under her left axilla. US ordered. 12/31/24 -? (more content not included)... Normal [facility] - Chemistry and C hemistry - challengeOrdered By: Emily Melgar on 12-31-2024 Glucose Ql (U) Negative [facility] - UrinalysisOrder ed By: Emily Melgar on 12-31-2024 Protein Ql (U) Negative [facility] Scout Office Visit Reporton 12-31-2024 Scout Office Visit Report [facility] [address], [address] [place] [address] OFFICE VISIT Date of Service: 12/31/24 MR#: [id number] Acct: [id number] Name: DARLENE ANN Rep #: [id number] 5 : 1995 Provider: Dr. Emily Washington DO Age/Sex: 29/F [place] [facility] [place] Status: Signed Intake Vital Signs 10/31/24 14:32 12/01/24 10:52 12/31/24 10:23 Height 5 ft 5 in 5 ft 5 in 5 ft 5 in Weight: 154 lb BMI 25.6 BP 107/72 Intake Visit Reasons: 19wk ob Sales And Service Change Leader Required: No Is patient in pain?: No Allergies No Known Allergies Allergy (Verified 12/31/24 10:24) Medications ???Medication ???Instructions ???Recorded ???Confirmed ???Type multivit-min no.71-iron fum 28 cap PO 10/10/24 12/31/24 History mg-folate no.1 1 mg-dha 300 mg capsule (PNV-[place]) Last Menstrual Period: 08/20/24 Zika: Zika virus screening: Negative : No PFSH PFSH Medical History Vaginal delivery Pyelectasis of fetus on ultrasound Surgical History H/O oral surgery Family History Father CHF (congestive heart failure) Diabetes Grandmother CHF (congestive heart failure) paternal Social History adopted: No household members: significant other and children number of children: 1 current occupational status: employed current occupation: [employer] current occupational exposures/hazards: No pets and animals: Yes (Avoid litterbox) pets and animals: cat(s) and dog(s) history of recent travel: No sexually active: Yes Smoking Status: Never smoker second hand exposure: No alcohol intake: current alcohol intake frequency: holidays/special occasions only details: not while substance use type: does not use well-balanced diet: daily or most days caffeine: Yes Type: carbonated beverages Number of servings: 1 eating out: 1-3 times/week during the past year weight has: remained stable what type of physical activity do you participate in: yoga frequency: 1-2 times per week duration: 15-30 minutes/day wolf/denominational: Hinduism seatbelt use: always do you feel safe at home: Yes additional social history: Fianc???: [employer] History 2 Elective abortions Hx Para 1 Spontaneous abortions Hx # Term Pregnancies Ectopic pregnancies Hx # Pregnancies Multiple births # of living children 1 Past Pregnancies Del. Date Name GA/Weeks Outcome Route Bth Weight Gen Labor Lgth Anesthesia Del Locatn Provider FOB 12/03/21 Rahul 40 live - full term 8#9oz Male epidural [facility] mary ann Ledesma Delivery Date: 12/03/21 Last Updated by: Oneyda Louise see problem list for complications, and IAL 40 SM boy Rahul HPI 19wk ob Details: DARLENE ANN is a 29 year old who presents for routine OB visit. OB Visit NOA Calculator Estimated Delivery Date Method Current WG Current Estimate 05/27/25 LMP (Certain) 19w 0d Other Estimates 05/30/25 Ultrasound #1 18w 4d Expected Delivery Route/Plan Labor Preferences- CB/BF classes: [] labor support person: [] labor intervention preferences: [] pain management options preferred: [] cut cord/dad catch: [] : [] PP control planned: [] discussed possible routes of delivery and associated risks: [] special requests: [] Specific Issue/Plans Covid status: [] Flu vaccine: [] Tdap vaccine: [] Rhogam: [] LARC form signed: [] Problem list reviewed and updated with the most current plan of care details and appropriate orders placed. Relevant counseling for the gestational age provided. Continue routine care and follow up unless otherwise noted in visit notes/problem list details Initial Weight: Not Recorded Date -???-???-???-???-?? ?-???-???-???-???-? ??-???-???- EGA Weight BP Urine Prot -???-???-???-???-?? ?-???-???-???-???-? ??-???-???- Glucose FHR FuHt Pres Dilation -???-???-???-???-?? ?-???-???-???-???-? ??-???-???- Effaced St Visit Note 10/31/24 -???-???-???-???-?? ?-???-???-???-???-? ??-???-???- 10w 2d 154 lb 2 oz 119/80 -???-???-???-???-?? ?-???-???-???-???-? ??-???-???- 160 -???-???-???-???-?? ?-???-???-???-???-? ??-???-???- SM- CRL 3cm cons with LMP 12/01/24 -???-???-???-???-?? ?-???-???-???-???-? ??-???-???- 14w 5d 152 lb 6 oz 109/75 Negative -???-???-???-???-?? ?-???-???-???-???-? ??-???-???- Negative 158 -???-???-???-???-?? ?-???-???-???-???-? ??-???-???- KW- no vb/cr amping. +flutters. has a lump under her left axilla. US ordered. 12/31/24 -???-???-???-???-?? ?-???-???-??? (more content not included)... Normal [facility] Axilla - Lefton 12-05-2024 Axilla - Left [facility] [address] [place] [address] Axilla - Left MR#: [id number] Acct: [id number] Name: DARLENE ANN Rep #: [id number] : 1995 F 29 From: Enrique Guerra MD PCP: Dr. Yesi Hughes MD Status: [facility] Study: Axilla - Left Date of Exam: 12/05/24 Exam# [id number] Ordering Dr: Corrie Johnson CNM EXAM: Left axillary ultrasound CLINICAL HISTORY: Left axillary palpable mass COMPARISON: No TECHNIQUE: Real-time ultrasound of the left axilla FINDINGS: There is normal accessory breast tissue in the left axillary region. There is no concerning abscess, mass or cyst. US/Axilla - Left IMPRESSION: No significant findings. Reading Location: [place] [address] CC: BRIAN Johnson; Dr. Yesi Hughes MD Vendor Analyst: Signed Normal [facility] Laboratory - Chemistry and C hemistry - challengeOrdered By: Corrie Johnson on 12-01-2024 Glucose Ql (U) Negative [facility] - UrinalysisOrder ed By: Corrie Johnson on 12-01-2024 Protein Ql (U) Negative [facility] Scout Office Visit Reporton 12-01-2024 Scout Office Visit Report [facility] [address], [address] [place] [address] OFFICE VISIT Date of Service: 12/01/24 MR#: [id number] Acct: [id number] Name: DARLENE ANN Rep #: [id number] : 1995 Provider: BRIAN Winkler ams Age/Sex: 29/F Location: [facility] Status: Signed Intake Vital Signs 03/13/23 09:26 10/31/24 14:32 12/01/24 10:52 Height 5 ft 5 in 5 ft 5 in 5 ft 5 in Weight: 152 lb 6 oz BMI 25.3 BP 109/75 Intake Visit Reasons: 15wk ob Chief Complaint: 15wk OB Sales And Service Change Leader Required: No Is patient in pain?: No Allergies No Known Allergies Allergy (Verified 12/01/24 10:50) Medications ???Medication ???Instructions ???Recorded ???Confirmed ???Type multivit-min no.71-iron fum 28 cap PO 10/10/24 12/01/24 History mg-folate no.1 1 mg-dha 300 mg capsule (PNV-[place]) Last Menstrual Period: 08/20/24 : No PFSH PFSH Medical History Vaginal delivery Pyelectasis of fetus on ultrasound Surgical History H/O oral surgery Family History Father CHF (congestive heart failure) Diabetes Grandmother CHF (congestive heart failure) paternal Social History adopted: No household members: significant other and children number of children: 1 current occupational status: employed current occupation: [employer] current occupational exposures/hazards: No pets and animals: Yes (Avoid litterbox) pets and animals: cat(s) and dog(s) history of recent travel: No sexually active: Yes Smoking Status: Never smoker second hand exposure: No alcohol intake: current alcohol intake frequency: holidays/special occasions only details: not while substance use type: does not use well-balanced diet: daily or most days caffeine: Yes Type: carbonated beverages Number of servings: 1 eating out: 1-3 times/week during the past year weight has: remained stable what type of physical activity do you participate in: yoga frequency: 1-2 times per week duration: 15-30 minutes/day wolf/denominational: Hinduism seatbelt use: always do you feel safe at home: Yes additional social history: Fianc???: [employer] History 2 Elective abortions Hx Para 1 Spontaneous abortions Hx # Term Pregnancies Ectopic pregnancies Hx # Pregnancies Multiple births # of living children 1 Past Pregnancies Del. Date Name GA/Weeks Outcome Route Bth Weight Gen Labor Lgth Anesthesia Del Locatn Provider FOB 12/03/21 Rahul 40 live - full term 8#9oz Male epidural [facility] mary ann Ledesma Delivery Date: 12/03/21 Last Updated by: Oneyda Louise see problem list for complications, and IAL 40 SM boy Rahul HPI 15wk ob Details: DARLENE ANN is a 29 year old who presents for routine OB visit. OB Visit NOA Calculator Estimated Delivery Date Method Current WG Current Estimate 05/27/25 LMP (Certain) 14w 5d Other Estimates 05/30/25 Ultrasound #1 14w 2d Expected Delivery Route/Plan Labor Preferences- CB/BF classes: [] labor support person: [] labor intervention preferences: [] pain management options preferred: [] cut cord/dad catch: [] : [] PP control planned: [] discussed possible routes of delivery and associated risks: [] special requests: [] Specific Issue/Plans Covid status: [] Flu vaccine: [] Tdap vaccine: [] Rhogam: [] LARC form signed: [] Problem list reviewed and updated with the most current plan of care details and appropriate orders placed. Relevant counseling for the gestational age provided. Continue routine care and follow up unless otherwise noted in visit notes/problem list details Initial Weight: Not Recorded Date -???-???-???-???-?? ?-???-???-???-???-? ??-???-???- EGA Weight BP Urine Prot -???-???-???-???-?? ?-???-???-???-???-? ??-???-???- Glucose FHR FuHt Pres Dilation -???-???-???-???-?? ?-???-???-???-???-? ??-???-???- Effaced St Visit Note 10/31/24 -???-???-???-???-?? ?-???-???-???-???-? ??-???-???- 10w 2d 154 lb 2 oz 119/80 -???-???-???-???-?? ?-???-???-???-???-? ??-???-???- 160 -???-???-???-???-?? ?-???-???-???-???-? ??-???-???- SM- CRL 3cm cons with LMP 12/01/24 -???-???-???-???-?? ?-???-???-???-???-? ??-???-???- 14w 5d 152 lb 6 oz 109/75 Negative -???-???-???-???-?? ?-???-???-???-???-? ??-???-???- Negative 158 -???-???-???-???-?? ?-???-???-???-???-? ??-???-???- KW- no vb/cr amping. +flutters. has a lump under her left axilla. US ordered. ACOG First Trimester First Trimester: Desire for , Alcohol, Tob (more content not included)... Normal [facility] PAP I-G w/rfx hrHPV-Aptimaon 11-05-2024 ADEQ Comment Normal . [facility] Comment on above: Order Comment: Kody daen Comment: [id number] Specimen Comment: No. of containers..01 ThinPrep Vial Result Comment: Sati sfactory for evaluation. No endocervical component is identified. Performed By: #### M 100.2200, L7000.1800, L7400.0353 #### [facility] [address] [place], [place], [id number] COMM . Normal . [facility] Comment on above: Order Comment: Kody dean Comment: [id number] Specimen Comment: No. of containers..01 ThinPrep Vial Performed By: #### M 100.2200, L7000.1800, L7400.0353 #### [facility] [address] [place], [address] COMMENT Comment Normal . [facility] Comment on above: Order Comment: Kody dean Comment: [id number] Specimen Comment: No. of containers..01 ThinPrep Vial Result Comment: This liquid based ThinPrep(R) pap test was screened with the use of an image guided system. Performed By: #### M 100.2200, L7000.1800, L7400.0353 #### [facility] [address] [place], [place], [address] DIAG Comment Normal . [facility] Comment on above: Order Comment: Speci men Comment: [id number] Specimen Comment: No. of containers..01 ThinPrep Vial Result Comment: NEGA TIVE FOR INTRAEPITHELIAL LESION OR MALIGNANCY. Performed By: #### M 100.2200, L7000.1800, L7400.0353 #### [facility] [address] [place], [place], [id number] HPV RFLX Comment Normal . [facility] Comment on above: Order Comment: Speci men Comment: [id number] Specimen Comment: No. of containers..01 ThinPrep Vial Result Comment: The HPV DNA reflex criteria were not met with this specimen result therefore, no HPV testing was performed. Performed at: - [address] [id number] [employer] Worker: Sierra Ortiz MD, Phone: [phone] Performed By: #### M 100.2200, L7000.1800, L7400.0353 #### [facility] [address] [place], [place], [address] PAPSMR Comment Normal . [facility] Comment on above: Order Comment: Speci men Comment: [id number] Specimen Comment: No. of containers..01 ThinPrep Vial Result Comment: The Pap smear is a screening test designed to aid in the detection of premalignant and malignant conditions of the uterine cervix. It is not a diagnostic procedure and should not be used as the sole means of detecting cervical cancer. Both false-positive and false-negative reports do occur. Performed By: #### M 100.2200, L7000.1800, L7400.0353 #### [facility] [address] [place], [address] PERFORM Comment Normal . [facility] Comment on above: Order Comment: Speci men Comment: [id number] Specimen Comment: No. of containers..01 ThinPrep Vial Result Comment: Zaynab Cooper, Sas Programmer Remote (ASCP) Performed By: #### M 100.2200, L7000.1800, L7400.0353 #### [facility] [address] [place], [address] Absolute lymphocyte countOrd ered By: Katiana Hai on 11-03-2024 Lymphocytes Auto (Unsp spec) [#/Vol] 1.45 10*3/uL 0.83-4.51 [facility] Absolute neutrophil countOrd ered By: Katiana Valles on 11-03-2024 Neutrophils (Bld) [#/Vol] 5.4 10*3/uL 2.0-7.7 [facility] Automated lymphocyte count a s percentage of total leukocytesOrdered By: Katiana Hai on 11-03-2024 Lymphocytes/100 WBC Auto (Unsp spec) 19.8 % 19-41 [facility] Basophil percentageOrdered B y: Katiana Valles on 11-03-2024 Basophils/100 WBC (Bld) 0.1 % 0-1 [facility] CBC W/Diff, Automatedon 10-13 Absolute Lymph 1.45 X10 3/uL Normal 0.83-4.51 [facility] Comment on above: Performed By: #### L 3890.6102, BTS, L3890.6301, L900.0098, L509.4006, L3890.6006, L100.0100, L509.8002 #### [facility] [address] [place], [address] Absolute Neut 5.4 X10 3/uL Normal 2.0-7.7 [facility] Comment on above: Performed By: #### L 3890.6102, BTS, L3890.6301, L900.0098, L509.4006, L3890.6006, L100.0100, L509.8002 #### [facility] [address] [place], [address] Basophils/100 WBC (Bld) 0.1 % Normal 0-1 [facility] Comment on above: Performed By: #### L 3890.6102, BTS, L3890.6301, L900.0098, L509.4006, L3890.6006, L100.0100, L509.8002 #### [facility] [address] [place], [address] Eosinophils/100 WBC (Bld) 0.4 % Normal 0-5 [facility] Comment on above: Performed By: #### L 3890.6102, BTS, L3890.6301, L900.0098, L509.4006, L3890.6006, L100.0100, L509.8002 #### [facility] [address] [place], [address] Erythrocyte distribution width (RBC) [Ratio] 12.7 % Normal 11.6-14.6 [facility] Comment on above: Performed By: #### L 3890.6102, BTS, L3890.6301, L900.0098, L509.4006, L3890.6006, L100.0100, L509.8002 #### [facility] [address] [place], [address] Hematocrit (Bld) [Volume fraction] 37.3 % Normal 37-47 [facility] Comment on above: Performed By: #### L 3890.6102, BTS, L3890.6301, L900.0098, L509.4006, L3890.6006, L100.0100, L509.8002 #### [facility] [address] [place], [address] Hemoglobin (Bld) [Mass/Vol] 12.7 g/dL Normal 12.0-15.0 [facility] Comment on above: Performed By: #### L 3890.6102, BTS, L3890.6301, L900.0098, L509.4006, L3890.6006, L100.0100, L509.8002 #### [facility] [address] [place], [address] IG% 0.300 Normal 0.0-0.9 [facility] Comment on above: Result Comment: IG% - Immature Granulocytes (promyelocytes, myelocytes and metamyelocytes) > 1% indicates that a LEFT SHIFT is Present. Performed By: #### L 3890.6102, BTS, L3890.6301, L900.0098, L509.4006, L3890.6006, L100.0100, L509.8002 #### [facility] [address] [place], [address] Lymphocytes/100 WBC (Bld) 19.8 % Normal 19-41 [facility] Comment on above: Performed By: #### L 3890.6102, BTS, L3890.6301, L900.0098, L509.4006, L3890.6006, L100.0100, L509.8002 #### [facility] [address] [place], [address] MCH (RBC) [Entitic mass] 29.6 pg Normal 27.0-32.0 [facility] Comment on above: Performed By: #### L 3890.6102, BTS, L3890.6301, L900.0098, L509.4006, L3890.6006, L100.0100, L509.8002 #### [facility] [address] [place], [address] MCHC (RBC) [Mass/Vol] 34.0 g/dL Normal 32-36 [facility] Comment on above: Performed By: #### L 3890.6102, BTS, L3890.6301, L900.0098, L509.4006, L3890.6006, L100.0100, L509.8002 #### [facility] [address] [place], [address] MCV (RBC) [Entitic vol] 86.9 fL Normal 81-99 [facility] Comment on above: Performed By: #### L 3890.6102, BTS, L3890.6301, L900.0098, L509.4006, L3890.6006, L100.0100, L509.8002 #### [facility] [address] [facility] [place], [address] Monocytes/100 WBC (Bld) 5.2 % Normal 0-10 [facility] Comment on above: Performed By: #### L 3890.6102, BTS, L3890.6301, L900.0098, L509.4006, L3890.6006, L100.0100, L509.8002 #### [facility] [address] [facility] [place], [address] Neutrophils/100 WBC (Bld) 74.2 % High 47-70 [facility] Comment on above: Performed By: #### L 3890.6102, BTS, L3890.6301, L900.0098, L509.4006, L3890.6006, L100.0100, L509.8002 #### [facility] [address] [place] [place], [address] Nucleated RBC (Bld) [#/Vol] 0 10*3/uL Normal 0-5 [facility] Comment on above: Performed By: #### L 3890.6102, BTS, L3890.6301, L900.0098, L509.4006, L3890.6006, L100.0100, L509.8002 #### [facility] [address] [place], [address] Platelet mean volume (Bld) [Entitic vol] 11.6 fL Normal 6.2-12.0 [facility] Comment on above: Performed By: #### L 3890.6102, BTS, L3890.6301, L900.0098, L509.4006, L3890.6006, L100.0100, L509.8002 #### [facility] [address] [place], [address] Platelets (Bld) [#/Vol] 200 10*3/uL Normal 150-450 [facility] Comment on above: Performed By: #### L 3890.6102, BTS, L3890.6301, L900.0098, L509.4006, L3890.6006, L100.0100, L509.8002 #### [facility] [address] [place], [address] RBC (Bld) [#/Vol] 4.29 10*6/uL Normal 4.2-5.4 [facility] Comment on above: Performed By: #### L 3890.6102, BTS, L3890.6301, L900.0098, L509.4006, L3890.6006, L100.0100, L509.8002 #### [facility] [address] [place], [address] RDW SD 39.9 fl Normal 35.1-43.9 [facility] Comment on above: Performed By: #### L 3890.6102, BTS, L3890.6301, L900.0098, L509.4006, L3890.6006, L100.0100, L509.8002 #### [facility] [address] [place], [address] WBC (Bld) [#/Vol] 7.3 10*3/uL Normal 4.4-11.0 [place] Comment on above: Performed By: #### L 3890.6102, BTS, L3890.6301, L900.0098, L509.4006, L3890.6006, L100.0100, L509.8002 #### [facility] [address] [place], [address] Chlamydia/GC COLBY aptimaon CHLAMY,NUC ACID Negative Normal Negative [facility] Comment on above: Performed By: #### M 100.2200, L7000.1800, L7400.0353 #### [facility] [address] [place], [address] GC BY NUC ACID Negative Normal Negative [facility] Comment on above: Result Comment: Perf ormed at: =G - [facility] [address] [id number] [employer] Worker: Sierra Ortiz MD, Phone: [phone] Performed By: #### M 100.2200, L7000.1800, L7400.0353 #### [facility] [address] [place], [address] Eosinophil percentageOrdered By: Katiana Valles on 11-03-2024 Eosinophils/100 WBC (Bld) 0.4 % 0-5 [facility] Erythrocyte distribution wid th ratioOrdered By: Katiana Valles on 11-03-2024 Erythrocyte distribution width (RBC) [Ratio] 12.7 % 11.6-14.6 [facility] Erythrocyte distribution wid th standard deviationOrdered By: Katiana Valles on 11-03-2024 Erythrocyte distribution width (RBC) [Ratio] 39.9 fl 35.1-43.9 [facility] HIVon 11-03-2024 HIV Non-Reactive Normal Nonreactive [facility] Comment on above: Result Comment: Non- Reactive Reactive Repeatedly reactive samples must be confirmed according to CDC recommended confirmatory algorithms. The subresults for either HIVAG or AHIV can be used as an aid in the selection of the confirmation algorithm for reactive samples. Send out specimens with Reactive results to [facility] for confirmation. Order the HIV antibody detection and differentiation: [id number] Performed By: #### L 3890.6102, BTS, L3890.6301, L900.0098, L509.4006, L3890.6006, L100.0100, L509.8002 ####[facility] [address] [place], [place], [id number] Hematocrit Auto (Bld) [Volum e fraction]Ordered By: Katiana Valles on 11-03-2024 Hematocrit (Bld) [Volume fraction] 37.3 % 37-47 [facility] Hemoglobin measurementOrdere d By: Katiana Valles on 11-03-2024 Hemoglobin (Bld) [Mass/Vol] 12.7 g/dL 12.0-15.0 [facility] Hepatitis C Antibodyon 11-03 Hepatitis C Ab Non-Reactive Normal Nonreactive [facility] Comment on above: Result Comment: Reac tive: Presumptive evidence of antibodies to HCV. Follow CDC recommendations for supplemental testing. Non-Reactive: Antibodies to HCV were not detected; does not exclude the possibility of exposure to HCV Reactive Results are presumptive evidence of antibodies to HCV. Follow CDC recommendations for supplemental testing. Order confirmation testing: HCV Quant by PCR testing - HCVPCR #[id number] Non Reactive: < 0.8 Equivocal: >/= 0.8 to < 1.0 Reactive: >/= 1.0 The CDC requires that a reactive/equivocal HCV antibody result be sent out for confirmation. HCV Quant by PCR testing. Performed By: #### L 3890.6102, BTS, L3890.6301, L900.0098, L509.4006, L3890.6006, L100.0100, L509.8002 ####[facility] [address] [place], [place], [id number] Immature granulocytes/100 WB C Auto (Bld)Ordered By: Katiana Valles on 11-03-2024 Immature granulocytes/100 WBC (Bld) 0.300 % 0.0-0.9 [facility] Comment on above: IG% - Immature Granu locytes (promyelocytes, myelocytes and metamyelocytes) > 1% indicates that a LEFT SHIFT is Present. L3890.6102on 11-03-2024 HEP B Surf Ag Non-Reactive Normal Nonreactive [facility] Comment on above: Result Comment: Reac tive: Presumptive evidence of HBV. Repeatedly reactive samples must be confirmed using a neutralization test ([employer] HBsAg Confirmatory Test) Non-Reactive: HBsAg not detected; does not exclude the possibility of exposure to HBV Performed By: #### L 3890.6102, BTS, L3890.6301, L900.0098, L509.4006, L3890.6006, L100.0100, L509.8002 ####[facility] [address] [facility] [place], [place], [id number] L509.4006on 11-03-2024 Rubella IgG Non-Reactive Normal Nonreactive [facility] Comment on above: Result Comment: Anti body Result: Interpretation Non-Reactive: Non-Immune Reactive: Immune The following results were obtained with the [employer] Rubella IgG assay. Results from assays of other manufacturers cannot be used interchangeably. Performed By: #### L 3890.6102, BTS, L3890.6301, L900.0098, L509.4006, L3890.6006, L100.0100, L509.8002 #### [facility] [address] [facility] [place], [place], [id number] Laboratory - Microbiology an d Antimicrobial susceptibilityOrdered By: Katiana Valles on 11-03-2024 HBV surface Ag Ql (S) Non-Reactive Nonreactive [facility] Comment on above: Reactive: Presumptiv e evidence of HBV. Repeatedly reactive samples must be confirmed using a neutralization test ([employer] HBsAg Confirmatory Test)Non-Reactive: HBsAg not detected; does not exclude the possibility of exposure to HBV MCV (mean corpuscular volume ) determinationOrdered By: Katiana Valles on 11-03-2024 MCV (RBC) [Entitic vol] 86.9 fL 81-99 [facility] Mean corpuscular hemoglobin (MCH) determinationOrdered By: Katiana Valles on 11-03-2024 MCH (RBC) [Entitic mass] 29.6 pg 27.0-32.0 [facility] Mean corpuscular hemoglobin concentration (MCHC) determinationOrdered By: Katiana Valles on 11-03-2024 MCHC (RBC) [Mass/Vol] 34.0 g/dL 32-36 [facility] Mean platelet volume determi nationOrdered By: Katiana Valles on 11-03-2024 Platelet mean volume (Bld) [Entitic vol] 11.6 fL 6.2-12.0 [facility] Monocyte percentageOrdered B y: Katiana Valles on 11-03-2024 Monocytes/100 WBC (Bld) 5.2 % 0-10 [facility] NATERAon 11-03-2024 NATURA SEE SCANNED REPORT Normal [place] Comment on above: Order Comment: Comme nts: NIPT with Gender Performed By: #### L 3890.6102, BTS, L3890.6301, L900.0098, L509.4006, L3890.6006, L100.0100, L509.8002 #### [facility] [address] [place], [place], [id number] Neutrophil percentageOrdered By: Katiana Valles on 11-03-2024 Neutrophils/100 WBC (Bld) 74.2 % High 47-70 [facility] No Panel InformationOrdered By: Katiana Valles on 11-03-2024 HIV (1&2) Antibody Non-Reactive Nonreactive [facility] Comment on above: Non-ReactiveReactive Repeatedly reactive samples must be confirmed according to CDC recommended confirmatory algorithms. The subresults for either HIVAG or AHIV can be used as an aid in the selection of the confirmation algorithm for reactive samples.Send out specimens with Reactive results to [facility] for confirmation.Order the HIV antibody detection and differentiation: #[id number] Nucleated red blood cell per centageOrdered By: Katiana Valles on 11-03-2024 Nucleated RBC/100 WBC (Bld) [Ratio] 0 % 0-5 [facility] Platelet countOrdered By: Mariela Valles on 11-03-2024 Platelets (Bld) [#/Vol] 200 10*3/uL 150-450 [facility] RBC Auto (Bld) [#/Vol]Ordere d By: Katiana Valles on 11-03-2024 RBC (Bld) [#/Vol] 4.29 10*6/uL 4.2-5.4 [facility] Syphilis Antibodieson 2024 Syphilis Abs Non-Reactive Normal Nonreactive [facility] Comment on above: Performed By: #### L 3890.6102, BTS, L3890.6301, L900.0098, L509.4006, L3890.6006, L100.0100, L509.8002 ####[facility] [address] [place], [address] Type AND Screenon 11-03-2024 Ab SCREEN GEL Negative Normal [facility] Comment on above: Order Comment: PN Performed By: #### L 3890.6102, BTS, L3890.6301, L900.0098, L509.4006, L3890.6006, L100.0100, L509.8002 ####[facility] [id number] [place], [place], [id number] White blood cell (WBC) count Ordered By: Katiana Valles on 11-03-2024 WBC (Bld) [#/Vol] 7.3 10*3/uL 4.4-11.0 [place] Urine Cultureon 11-01-2024 URC Culture exhibits no growth. Normal [facility] Comment on above: Performed By: #### M 100.2200, L7000.1800, L7400.0353 #### [facility] [address] [place], [place], [id number] Cervical or vagninal specime n microscopic examination by cytology stain (reported asOrdered By: Katiana Valles on 10-31-2024 Cytology report Cyto stain Doc (Cvx/Vag) Comment . [facility] Comment on above: The Pap smear is a s creening test designed to aid in thedetection of premalignant and malignant conditions of theuterine cervix. It is not a diagnostic procedure andshould not be used as the sole means of detecting cervicalcancer. Both false-positive and false-negative reports dooccur. Chlamydia trachomatis rRNA d etection by probe and target amplification methodOrdered By: Katiana Valles on 10-31-2024 C. trachomatis rRNA COLBY+probe Ql (Unsp spec) Negative Negative [facility] - CytologyOrdered By: Katiana Valles on 10-31-2024 Sas Programmer Remote Cyto stain Nom (Cvx/Vag) [ID] Comment . [facility] Comment on above: Zaynab Cooper Cytol ogmiriam (ASCP) Laboratory - Miscellaneous t estsOrdered By: Katiana Valles on 10-31-2024 Service comment (Unsp spec) [Interp] . . [facility] Neisseria gonorrhoeae nuclei c acid detection by amplified probe techniqueOrdered By: Katiana Valles on 10-31-2024 N. gonorrhoeae DNA COLBY+probe Ql (Unsp spec) Negative Negative [facility] Comment on above: Performed at: =[address] [id number] Director: Sierra Ortiz MD, Phone: [phone] No Panel InformationOrdered By: Katiana Valles on 10-31-2024 Pap Smear Specimen Adequacy Comment . [facility] Comment on above: Satisfactory for thomas luation. No endocervical component is identified. Scout Office Visit Reporton 10-31-2024 Scout Office Visit Report [facility] [address] [place] [address], [address] [place] [address] OFFICE VISIT Date of Service: 10/31/24 MR#: [id number] Acct: [id number] Name: MARISSADARLENE ALVA Rep #: [id number] : 1995 Provider: Dr. 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: No Is patient in pain?: No Allergies No Known Allergies Allergy (Verified 10/31/24 14:31) Medications ???Medication ???Instructions ???Recorded ???Confirmed ???Type multivit-min no.71-iron fum 28 cap PO 10/10/24 History mg-folate no.1 1 mg-dha 300 mg capsule (PNV-[place]) Last Menstrual Period: 08/20/24 Zika: Zika virus screening: Negative : No PFSH PFSH Medical History Vaginal delivery Pyelectasis of fetus on ultrasound Surgical History H/O oral surgery Family History Father CHF (congestive heart failure) Diabetes Grandmother CHF (congestive heart failure) paternal Social History adopted: No household members: significant other and children number of children: 1 current occupational status: employed current occupation: [employer] current occupational exposures/hazards: No pets and animals: Yes (Avoid litterbox) pets and animals: cat(s) and dog(s) history of recent travel: No sexually active: Yes Smoking Status: Never smoker second hand exposure: No alcohol intake: current alcohol intake frequency: holidays/special occasions only details: not while substance use type: does not use well-balanced diet: daily or most days caffeine: Yes Type: carbonated beverages Number of servings: 1 eating out: 1-3 times/week during the past year weight has: remained stable what type of physical activity do you participate in: yoga frequency: 1-2 times per week duration: 15-30 minutes/day wolf/denominational: Hinduism seatbelt use: always do you feel safe at home: Yes additional social history: Fianc???: [employer] History 2 Elective abortions Hx Para 1 Spontaneous abortions Hx # Term Pregnancies Ectopic pregnancies Hx # Pregnancies Multiple births # of living children 1 Past Pregnancies Del. Date Name GA/Weeks Outcome Route Bth Weight Gen Labor Lgth Anesthesia Del Locatn Provider FOB 12/03/21 Rahul 40 live - full term 8#9oz Male epidural [facility] mary ann Ledesma Delivery Date: 12/03/21 Last Updated by: Oneyda Louise see problem list for complications, and IAL 40 SM boy Rahul HPI *EST* NOB LMP 08/21, NOA 05/28 Details: DARLENE ANN is a 29 year old who presents for New OB visit. OB Visit NOA Calculator Estimated Delivery Date Method Current WG Current Estimate 05/27/25 LMP (Certain) 10w 4d Other Estimates 05/30/25 Ultrasound #1 10w 1d Comments: HIV: Urine Culture: Sequential Screen: NIPT Screen: Estimated Due Date: 05/27/25 Expected Delivery Route/Plan Labor Preferences- CB/BF classes: [] labor support person: [] labor intervention preferences: [] pain management options preferred: [] cut cord/dad catch: [] : [] PP control planned: [] discussed possible routes of delivery and associated risks: [] special requests: [] Specific Issue/Plans Covid status: [] Flu vaccine: [] Tdap vaccine: [] Rhogam: [] LARC form signed: [] Problem list reviewed and updated with the most current plan of care details and appropriate orders placed. Relevant counseling for the gestational age provided. Continue routine care and follow up unless otherwise noted in visit notes/problem list details Initial Weight: Not Recorded Date -???-???-???-???-?? ?-???-???-???-???-? ??-???-???- EGA Weight BP Urine Prot -???-???-???-???-?? ?-???-???-???-???-? ??-???-???- Glucose FHR FuHt Pres Dilation -???-???-???-???-?? ?-???-???-???-???-? ??-???-???- Effaced St Visit Note 10/31/24 -???-???-???-???-?? ?-???-???-???-???-? ??-???-???- 10w 2d 154 lb 2 oz 119/80 -???-???-???-???-?? ?-???-???-???-???-? ??-???-???- 160 -???-???-???-???-?? ?-???-???-???-???-? ??-???-???- SM- CRL 3cm cons with LMP Menstrual History Last Menstrual Period: 08/20/24 Reported LMP: definite Normal amount/duration: Yes Frequency in days: 28 On hormonal BC at conception: No hCG+: 09/26/24 Antepartum Record Gene (more content not included)... Normal [facility] Urine cultureOrdered By: Raji Valles on 10-31-2024 Bacteria identified Cx Nom (U) Culture exhibits no growth. [facility] Absolute lymphocyte counton 12-02-2021 Lymphocytes Auto (Unsp spec) [#/Vol] 1.46 10*3/uL 0.83-4.51 [facility] Work Phone: Basophil percentageon 2021 Basophils/100 WBC (Bld) 0.1 % 0-1 [facility] Work Phone: Eosinophils/100 WBC (Bld) 0.2 % 0-5 [facility] Work Phone: Neutrophils (Bld) [#/Vol] 7.1 10*3/uL 2.0-7.7 [facility] Work Phone: Neutrophils/100 WBC (Bld) 75.8 % 47-70 [facility] Work Phone: WBC (Bld) [#/Vol] 9.4 10*3/uL 4.4-11.0 [place] Work Phone: Blood erythrocytes count (nu mber/volume)on 12-02-2021 RBC (Bld) [#/Vol] 4.03 10*6/uL 4.2-5.4 [facility] Work Phone: [phone] Blood hemoglobin measurement (mass/volume)on 12-02-2021 Hemoglobin (Bld) [Mass/Vol] 11.7 g/dL 12.0-15.0 [facility] Work Phone: [phone] Blood lymphocytes/100 leukoc yteson 12-02-2021 Lymphocytes/100 WBC (Bld) 15.5 % 19-41 [facility] Work Phone: [phone] Blood monocytes/100 leukocyt eson 12-02-2021 Monocytes/100 WBC (Bld) 7.8 % 0-10 [facility] Work Phone: [phone] Blood platelet mean volumeon 12-02-2021 Platelet mean volume (Bld) [Entitic vol] 13.4 fL 6.2-12.0 [facility] Work Phone: [phone] Determination of erythrocyte mean corpuscular volume (MCV)on 12-02-2021 MCV (RBC) [Entitic vol] 89.1 fL 81-99 [facility] Work Phone: [phone] Hematocrit Auto (Bld) [Volum e fraction]on 12-02-2021 Hematocrit (Bld) [Volume fraction] 35.9 % 37-47 [facility] Work Phone: [phone] Laboratory - Hematology and Cell countson 12-02-2021 Erythrocyte distribution width (RBC) [Entitic vol] 45.1 fL 35.1-43.9 [place] Work Phone: [phone] Erythrocyte distribution width (RBC) [Ratio] 14.1 % 11.6-14.6 [facility] Work Phone: [phone] Immature granulocytes/100 WBC (Bld) 0.600 % 0.0-0.9 [facility] Work Phone: Comment on above: IG% - Immature Granu locytes (promyelocytes, myelocytes and metamyelocytes) > 1% indicates that a LEFT SHIFT is Present. MCH (RBC) [Entitic mass] 29.0 pg 27.0-32.0 [facility] Work Phone: Nucleated RBC/100 WBC (Bld) [Ratio] 0 % 0-5 [facility] Work Phone: MCHC Auto (RBC) [Mass/Vol]on 12-02-2021 MCHC (RBC) [Mass/Vol] 32.6 g/dL 32-36 [facility] Work Phone: No Panel Informationon 12-02 Vaginal Amniotic Fluid Detection Positive Negative [facility] Work Phone: Comment on above: Amniotic fluid prese nt indicates rupture of Membranes. RESULTS CALLED TO [facility] 12/02/212023 Annalee Parikh.REPORT READ BACK BY SAME . Platelets bldon 12-02-2021 Platelets (Bld) [#/Vol] 136 10*3/uL 150-450 [facility] Work Phone: Laboratory - Chemistry and C hemistry - challengeon 11-30-2021 Glucose Ql (U) Negative [facility] Work Phone: Laboratory - Urinalysison Protein Ql (U) Negative [facility] Work Phone: Laboratory - Chemistry and C hemistry - challengeon 11-22-2021 Glucose Ql (U) Negative [facility] Work Phone: Laboratory - Urinalysison Protein Ql (U) Negative [facility] Work Phone: Laboratory - Chemistry and C hemistry - challengeon 11-17-2021 Glucose Ql (U) Negative [facility] Work Phone: Laboratory - Urinalysison Protein Ql (U) Negative [facility] Work Phone: Laboratory - Chemistry and C hemistry - challengeon 10-20-2021 Glucose Ql (U) Negative [facility] Work Phone: Laboratory - Urinalysison Protein Ql (U) Negative [facility] Work Phone: Laboratory - Chemistry and C hemistry - challengeon 09-22-2021 Glucose Ql (U) Negative [facility] Work Phone: Laboratory - Urinalysison Protein Ql (U) Negative [facility] Work Phone: Absolute lymphocyte counton 09-08-2021 Lymphocytes Auto (Unsp spec) [#/Vol] 1.35 10*3/uL 0.83-4.51 [facility] Work Phone: Basophil percentageon 2021 Basophils/100 WBC (Bld) 0.2 % 0-1 [facility] Work Phone: Eosinophils/100 WBC (Bld) 0.1 % 0-5 [facility] Work Phone: Neutrophils (Bld) [#/Vol] 6.8 10*3/uL 2.0-7.7 [facility] Work Phone: Neutrophils/100 WBC (Bld) 77.0 % 47-70 [facility] Work Phone: WBC (Bld) [#/Vol] 8.9 10*3/uL 4.4-11.0 [place] Work Phone: Blood erythrocytes count (nu mber/volume)on 09-08-2021 RBC (Bld) [#/Vol] 3.89 10*6/uL 4.2-5.4 [facility] Work Phone: Blood hemoglobin measurement (mass/volume)on 09-08-2021 Hemoglobin (Bld) [Mass/Vol] 11.5 g/dL 12.0-15.0 [facility] Work Phone: Blood lymphocytes/100 leukoc yteson 09-08-2021 Lymphocytes/100 WBC (Bld) 15.2 % 19-41 [facility] Work Phone: Blood monocytes/100 leukocyt eson 09-08-2021 Monocytes/100 WBC (Bld) 6.9 % 0-10 [facility] Work Phone: Blood platelet mean volumeon 09-08-2021 Platelet mean volume (Bld) [Entitic vol] 11.4 fL 6.2-12.0 [facility] Work Phone: [phone] Determination of erythrocyte mean corpuscular volume (MCV)on 09-08-2021 MCV (RBC) [Entitic vol] 92.3 fL 81-99 [facility] Work Phone: [phone] Gestational diabetes screen 1-hour screen with 50g oral glucose loadon 09-08-2021 Glucose 1 Hr post 50 g glucose PO [Mass/Vol] 115 mg/dL 70-140 [facility] Work Phone: [phone] Hematocrit Auto (Bld) [Volum e fraction]on 09-08-2021 Hematocrit (Bld) [Volume fraction] 35.9 % 37-47 [facility] Work Phone: [phone] Laboratory - Hematology and Cell countson 09-08-2021 Erythrocyte distribution width (RBC) [Entitic vol] 44.0 fL 35.1-43.9 [place] Work Phone: [phone] Erythrocyte distribution width (RBC) [Ratio] 13.1 % 11.6-14.6 [facility] Work Phone: [phone] Immature granulocytes/100 WBC (Bld) 0.600 % 0.0-0.9 [facility] Work Phone: [phone] Comment on above: IG% - Immature Granu locytes (promyelocytes, myelocytes and metamyelocytes) > 1% indicates that a LEFT SHIFT is Present. MCH (RBC) [Entitic mass] 29.6 pg 27.0-32.0 [facility] Work Phone: [phone] Nucleated RBC/100 WBC (Bld) [Ratio] 0 % 0-5 [facility] Work Phone: [phone] MCHC Auto (RBC) [Mass/Vol]on 09-08-2021 MCHC (RBC) [Mass/Vol] 32.0 g/dL 32-36 [facility] Work Phone: [phone] Platelets bldon 09-08-2021 Platelets (Bld) [#/Vol] 168 10*3/uL 150-450 [facility] Work Phone: Laboratory - Chemistry and C hemistry - challengeon 08-12-2021 Glucose Ql (U) Negative [facility] Work Phone: Laboratory - Urinalysison Protein Ql (U) Negative [facility] Work Phone: [phone] Laboratory - Chemistry and C hemistry - challengeon 07-14-2021 Glucose Ql (U) Negative [facility] Work Phone: Laboratory - Urinalysison Protein Ql (U) Negative [facility] Work Phone: Laboratory - Chemistry and C hemistry - challengeon 05-26-2021 Glucose Ql (U) Negative [facility] Work Phone: Laboratory - Urinalysison Protein Ql (U) Negative [facility] Work Phone: [phone] Laboratory - Chemistry and C hemistry - challengeon 05-19-2021 Glucose Ql (U) Negative [facility] Work Phone: Laboratory - Urinalysison Protein Ql (U) 2+ [facility] Work Phone: No Panel Informationon 05-19 Miscellaneous Test Comment MAILED SPECIMEN [facility] Work Phone: No Panel Information Group B Streptococcus Culture Group B Beta Streptococcus is not isolated. [facility] Work Phone: Vital Signs Date Time Vital Sign Value Performing Clinician Fernando fine 01-28-2025 10:03-0400 Body height 165.[address] Katiana Valles MD Work Phone: [facility] 01-28-2025 10:03-0400 Body mass index (BMI) [Ratio] 26.6 kg/m2 Dr. Katiana Valles MD Work Phone: [facility] 01-28-2025 10:03-0400 Body weight 72.[address] Katiana Valles MD Work Phone: [phone] [place] [address] 01-28-2025 10:03-0400 Diastolic blood pressure 74 mm[Hg] Dr. Katiana Valles MD Work Phone: [phone] [place] [address] 01-28-2025 10:03-0400 Systolic blood pressure 101 mm[Hg] Dr. Katiana Valles MD Work Phone: [phone] [place] [address] 12-31-2024 10:23-0400 Body height 165.[address] Katiana Valles MD Work Phone: [phone] [place] [address] 12-31-2024 10:23-0400 Body mass index (BMI) [Ratio] 25.6 kg/m2 Dr. Katiana Valles MD Work Phone: [phone] [place] [address] 12-31-2024 10:23-0400 Body weight 69.[address] Katiana Valles MD Work Phone: [phone] [place] [address] 12-31-2024 10:23-0400 Diastolic blood pressure 72 mm[Hg] Dr. Katiana Valles MD Work Phone: [phone] [place] [address] 12-31-2024 10:23-0400 Systolic blood pressure 107 mm[Hg] Dr. Katiana Valles MD Work Phone: [phone] [place] [address] 12-01-2024 10:52-0400 Body height 165.[address] Katiana Valles MD Work Phone: [phone] [place] [address] 12-01-2024 10:52-0400 Body mass index (BMI) [Ratio] 25.3 kg/m2 Dr. Katiana Valles MD Work Phone: [phone] [place] [address] 12-01-2024 10:52-0400 Body weight 69.[address] Katiana Valles MD Work Phone: [phone] [place] [address] 12-01-2024 10:52-0400 Diastolic blood pressure 75 mm[Hg] Dr. Katiana Valles MD Work Phone: [facility] 12-01-2024 10:52-0400 Systolic blood pressure 109 mm[Hg] Dr. Katiana Valles MD Work Phone: [facility] 10-31-2024 14:32-0400 Body height 165.[address] Katiana Valles MD Work Phone: [facility] 10-31-2024 14:32-0400 Body mass index (BMI) [Ratio] 25.6 kg/m2 Dr. Katiana Valles MD Work Phone: [facility] 10-31-2024 14:32-0400 Body weight 69.[address] Katiana Valles MD Work Phone: [facility] 10-31-2024 14:32-0400 Diastolic blood pressure 80 mm[Hg] Dr. Katiana Valles MD Work Phone: [facility] 10-31-2024 14:32-0400 Systolic blood pressure 119 mm[Hg] Dr. Katiana Valles MD Work Phone: [facility] 03-13-2023 09:26-0400 Body height 165.1 cm [facility] 03-13-2023 09:26-0400 Body mass index (BMI) [Ratio] 23.3 kg/m2 [facility] 03-13-2023 09:26-0400 Body temperature 97.6 [degF] [facility] 03-13-2023 09:26-0400 Body weight 63.77 kg [facility] 03-13-2023 09:26-0400 Diastolic blood pressure 106 mm[Hg] [facility] 03-13-2023 09:26-0400 Heart rate 102 /min [facility] 03-13-2023 09:26-0400 Respiratory rate 14 /min [facility] 03-13-2023 09:26-0400 SaO2% (BldA) [Mass fraction] 98 % [facility] 03-13-2023 09:26-0400 Systolic blood pressure 127 mm[Hg] [facility] 12-04-2021 08:13-0400 Body temperature 97.1 [degF] No Primary Care Physician [facility] Work Phone: 12-04-2021 08:13-0400 Diastolic blood pressure 72 mm[Hg] No Primary Care Physician [facility] Work Phone: 12-04-2021 08:13-0400 Heart rate 86 /min No Primary Care Physician [facility] Work Phone: 12-04-2021 08:13-0400 Respiratory rate 18 /min No Primary Care Physician [facility] Work Phone: 12-04-2021 08:13-0400 SaO2% (BldA) [Mass fraction] 97 % No Primary Care Physician [facility] Work Phone: 12-04-2021 08:13-0400 Systolic blood pressure 116 mm[Hg] No Primary Care Physician [facility] Work Phone: 12-02-2021 20:01-0400 Body height 165.1 cm No Primary Care Physician [facility] Work Phone: 12-02-2021 20:01-0400 Body mass index (BMI) [Ratio] 30.1 kg/m2 No Primary Care Physician [facility] Work Phone: 12-02-2021 20:01-0400 Body weight 82.1 kg No Primary Care Physician [facility] Work Phone: 11-30-2021 08:25-0400 Body mass index (BMI) [Ratio] 29.6 kg/m2 No Primary Care Physician [facility] Work Phone: 11-30-2021 08:25-0400 Body weight 80.73 kg No Primary Care Physician [facility] Work Phone: 11-30-2021 08:25-0400 Diastolic blood pressure 72 mm[Hg] No Primary Care Physician [facility] Work Phone: 11-30-2021 08:25-0400 Systolic blood pressure 122 mm[Hg] No Primary Care Physician [facility] Work Phone: 11-22-2021 08:37-0400 Body mass index (BMI) [Ratio] 32.5 kg/m2 No Primary Care Physician [facility] Work Phone: 11-22-2021 08:37-0400 Body weight 80.73 kg No Primary Care Physician [facility] Work Phone: 11-22-2021 08:37-0400 Diastolic blood pressure 82 mm[Hg] No Primary Care Physician [facility] Work Phone: 11-22-2021 08:37-0400 Systolic blood pressure 114 mm[Hg] No Primary Care Physician [facility] Work Phone: 11-17-2021 10:30-0400 Body mass index (BMI) [Ratio] 29.3 kg/m2 No Primary Care Physician [facility] Work Phone: 11-17-2021 10:30-0400 Body weight 79.94 kg No Primary Care Physician [facility] Work Phone: 11-17-2021 10:30-0400 Diastolic blood pressure 74 mm[Hg] No Primary Care Physician [facility] Work Phone: 11-17-2021 10:30-0400 Systolic blood pressure 126 mm[Hg] No Primary Care Physician [facility] Work Phone: 11-11-2021 11:02-0400 Body height 165.1 cm No Primary Care Physician [facility] Work Phone: 11-11-2021 10:56-0400 Body mass index (BMI) [Ratio] 29 kg/m2 No Primary Care Physician [facility] Work Phone: 11-11-2021 10:56-0400 Body weight 79.09 kg No Primary Care Physician [facility] Work Phone: 11-11-2021 10:56-0400 Diastolic blood pressure 72 mm[Hg] No Primary Care Physician [facility] Work Phone: 11-11-2021 10:56-0400 Systolic blood pressure 120 mm[Hg] No Primary Care Physician [facility] Work Phone: 11-04-2021 10:21-0400 Body mass index (BMI) [Ratio] 29.1 kg/m2 No Primary Care Physician [facility] Work Phone: 11-04-2021 10:21-0400 Body weight 79.37 kg No Primary Care Physician [facility] Work Phone: 11-04-2021 10:21-0400 Diastolic blood pressure 82 mm[Hg] No Primary Care Physician [facility] Work Phone: 11-04-2021 10:21-0400 Systolic blood pressure 110 mm[Hg] No Primary Care Physician [facility] Work Phone: 10-20-2021 09:54-0400 Body mass index (BMI) [Ratio] 28.4 kg/m2 No Primary Care Physician [facility] Work Phone: 10-20-2021 09:54-0400 Body weight 77.56 kg No Primary Care Physician [facility] Work Phone: 10-20-2021 09:54-0400 Diastolic blood pressure 80 mm[Hg] No Primary Care Physician [facility] Work Phone: 10-20-2021 09:54-0400 Systolic blood pressure 130 mm[Hg] No Primary Care Physician [facility] Work Phone: 10-06-2021 11:15-0400 Body mass index (BMI) [Ratio] 27.6 kg/m2 No Primary Care Physician [facility] Work Phone: 10-06-2021 11:15-0400 Body weight 75.29 kg No Primary Care Physician [facility] Work Phone: 10-06-2021 11:15-0400 Diastolic blood pressure 88 mm[Hg] No Primary Care Physician [facility] Work Phone: 10-06-2021 11:15-0400 Systolic blood pressure 126 mm[Hg] No Primary Care Physician [facility] Work Phone: 09-22-2021 11:43-0400 Body mass index (BMI) [Ratio] 26.9 kg/m2 No Primary Care Physician [facility] Work Phone: 09-22-2021 11:43-0400 Body weight 73.48 kg No Primary Care Physician [facility] Work Phone: 09-22-2021 11:43-0400 Diastolic blood pressure 70 mm[Hg] No Primary Care Physician [facility] Work Phone: 09-22-2021 11:43-0400 Systolic blood pressure 126 mm[Hg] No Primary Care Physician [facility] Work Phone: 09-08-2021 10:13-0400 Body mass index (BMI) [Ratio] 27.1 kg/m2 No Primary Care Physician [facility] Work Phone: 09-08-2021 10:13-0400 Body weight 73.93 kg No Primary Care Physician [facility] Work Phone: 09-08-2021 10:13-0400 Diastolic blood pressure 72 mm[Hg] No Primary Care Physician [facility] Work Phone: 09-08-2021 10:13-0400 Systolic blood pressure 110 mm[Hg] No Primary Care Physician [facility] Work Phone: 09-08-2021 10:13-0400 Body height 165.1 cm No Primary Care Physician [facility] Work Phone: 09-08-2021 10:13-0400 Body mass index (BMI) [Ratio] 27.1 kg/m2 No Primary Care Physician [facility] Work Phone: 09-08-2021 10:13-0400 Body weight 73.93 kg No Primary Care Physician [facility] Work Phone: 09-08-2021 10:13-0400 Diastolic blood pressure 72 mm[Hg] No Primary Care Physician [facility] Work Phone: 09-08-2021 10:13-0400 Systolic blood pressure 110 mm[Hg] No Primary Care Physician [facility] Work Phone: 08-12-2021 09:28-0400 Body mass index (BMI) [Ratio] 26.2 kg/m2 No Primary Care Physician [facility] Work Phone: 08-12-2021 09:28-0400 Body weight 71.44 kg No Primary Care Physician [facility] Work Phone: 08-12-2021 09:28-0400 Diastolic blood pressure 64 mm[Hg] No Primary Care Physician [facility] Work Phone: 08-12-2021 09:28-0400 Systolic blood pressure 100 mm[Hg] No Primary Care Physician [facility] Work Phone: 08-12-2021 09:28-0400 Body mass index (BMI) [Ratio] 26.2 kg/m2 No Primary Care Physician [facility] Work Phone: 08-12-2021 09:28-0400 Body weight 71.44 kg No Primary Care Physician [facility] Work Phone: 08-12-2021 09:28-0400 Diastolic blood pressure 64 mm[Hg] No Primary Care Physician [facility] Work Phone: 08-12-2021 09:28-0400 Systolic blood pressure 100 mm[Hg] No Primary Care Physician [facility] Work Phone: 07-14-2021 10:57-0500 Body mass index (BMI) [Ratio] 24.6 kg/m2 No Primary Care Physician [facility] Work Phone: 07-14-2021 10:57-0500 Body weight 67.24 kg No Primary Care Physician [facility] Work Phone: 07-14-2021 10:57-0500 Diastolic blood pressure 78 mm[Hg] No Primary Care Physician [facility] Work Phone: 07-14-2021 10:57-0500 Systolic blood pressure 118 mm[Hg] No Primary Care Physician [facility] Work Phone: 05-26-2021 12:57-0500 Body mass index (BMI) [Ratio] 23.4 kg/m2 No Primary Care Physician [facility] Work Phone: 05-26-2021 12:57-0500 Body weight 63.95 kg No Primary Care Physician [facility] Work Phone: 05-26-2021 12:57-0500 Diastolic blood pressure 88 mm[Hg] No Primary Care Physician [facility] Work Phone: 05-26-2021 12:57-0500 Systolic blood pressure 132 mm[Hg] No Primary Care Physician [facility] Work Phone: 05-19-2021 10:43-0500 Body mass index (BMI) [Ratio] 23.9 kg/m2 No Primary Care Physician [facility] Work Phone: 05-19-2021 10:43-0500 Body weight 65.31 kg No Primary Care Physician [facility] Work Phone: 05-19-2021 10:43-0500 Diastolic blood pressure 80 mm[Hg] No Primary Care Physician [facility] Work Phone: 05-19-2021 10:43-0500 Systolic blood pressure 120 mm[Hg] No Primary Care Physician [facility] Work Phone: Encounters Encounter Date Encounter Type Care Provider Facility Start: 03-10-2025 ambulatory Darlene Decker NP Facil ity:[facility] Start: 02-25-2025 End: 02-25-2025 ambulatory Darlene [place] [place]: 02-25-2025 End: 02-25-2025 ambulatory Katiana Valles Facility:[facility] Start: 01-28-2025 End: 01-28-2025 Patient encounter procedure Darlene Decker POLYMER SCIENTIST-C -[facility] Work Phone: Start: 01-28-2025 End: 01-28-[address] Katiana Valles MD Work Phone: -[facility] Start: 01-05-2025 End: 01-05-[address] [facility] Start: 12-31-2024 End: 12-31-[address] Emily Diamond DO -[facility] Work Phone: Start: 12-31-2024 End: 12-31-[address] Katiana Valles MD Work Phone: [facility] Start: 12-05-2024 End: 12-05-[address] Katiana Valles MD Work Phone: -Ultrasound [facility] Start: 12-05-2024 End: 12-05-2024 Patient encounter procedure Corrie RAIM -Ultrasound [facility] Work Phone: Start: 12-05-2024 End: 12-05-2024 ambulatory Corrie [place] Facility:[facility] Start: 12-01-2024 End: 12-01-2024 Patient encounter procedure Corrie [place] CNM -[facility] Work Phone: Start: 12-01-2024 End: 12-01-[address] Katiana Valles MD Work Phone: [facility] Start: 11-03-2024 End: 11-03-[address] Katiana Valles MD Work Phone: [facility] Work Phone: Start: 11-03-2024 End: 11-03-[address] Katiana Valles MD -[facility] Start: 11-03-2024 End: 11-03-2024 ambulatory Katiana Valles Facility:[facility] Start: 10-31-2024 End: 10-31-[address] Katiana Valles MD Work Phone: [facility] Work Phone: Start: 10-31-2024 End: 10-31-[address] Katiana Valles MD -Laboratory Specimen Work Phone: Start: 10-31-2024 End: 10-31-[address] Katiana Valles MD -[facility] Work Phone: Start: 10-31-2024 End: 10-31-2024 ambulatory Katiana Valles [facility] Work Phone: Start: 10-31-2024 End: 10-31-2024 ambulatory Katiana Valles Facility:[facility] Start: 03-13-2023 End: 03-13-2023 Emergency department patient visit [facility]-Emergency Department Work Phone: Start: 12-04-2021 Non-patient / Non-visit No Primary Care Physician [facility] Start: 12-03-2021 Non-patient / Non-visit No Primary Care Physician [facility] Start: 12-02-2021 End: 12-04-2021 Evaluation and management of inpatient No Primary Care Physician [facility] Start: 11-30-2021 End: 11-30-2021 Patient encounter procedure No Primary Care Physician [facility] Start: 11-22-2021 End: 11-22-2021 Patient encounter procedure No Primary Care Physician [facility] Start: 11-17-2021 End: 11-17-2021 Patient encounter procedure No Primary Care Physician [facility] Start: 11-11-2021 End: 11-11-2021 Patient encounter procedure No Primary Care Physician [facility]-Laboratory, Specimen Start: 11-11-2021 End: 11-11-2021 Patient encounter procedure No Primary Care Physician [facility] Start: 11-04-2021 End: 11-04-2021 Patient encounter procedure No Primary Care Physician [facility] Start: 10-20-2021 End: 10-20-2021 Patient encounter procedure No Primary Care Physician [facility] Start: 10-06-2021 End: 10-06-2021 Patient encounter procedure No Primary Care Physician [facility] Start: 09-22-2021 End: 09-22-2021 Patient encounter procedure No Primary Care Physician [facility] Start: 09-08-2021 End: 09-08-2021 Patient encounter procedure No Primary Care Physician [facility] Start: 08-12-2021 End: 08-12-2021 Patient encounter procedure No Primary Care Physician [facility] Start: 07-14-2021 End: 07-14-2021 Patient encounter procedure No Primary Care Physician [facility] Start: 05-26-2021 End: 05-26-2021 Patient encounter procedure No Primary [facility] Physician [facility]-Laboratory, Specimen Start: 05-26-2021 End: 05-26-2021 Patient encounter procedure No Primary Care Physician [facility] Start: 05-19-2021 End: 05-19-2021 Patient encounter procedure No Primary [facility] Physician [facility]-Laboratory Procedures Date Procedure Procedure Detail Performing Clinician Start: 12-05-2024 Axilla - Left Dr. Madina Valles MD Work Phone: Start: 11-03-2024 Hepatitis C antibody measurement Dr. Katiana Valles MD Work Phone: Comment on above: Reactive: Presumptiv e evidence of antibodies to HCV. Follow CDC recommendations for supplemental testing.Non-Reactive: Antibodies to HCV were not detected; does not exclude the possibility of exposure to HCVReactive Results are presumptive evidence of antibodies to HCV. Follow CDC recommendations for supplemental testing.Order confirmation testing: HCV Quant by PCR testing - HCVPCR #[id number] Non Reactive: < 0.8 Equivocal: >/= 0.8 to < 1.0 Reactive: >/= 1.0The CDC requires that a reactive/equivocal HCV antibody result be sent out for confirmation. HCV Quant by PCR testing. Start: 11-03-[address] Katiana Valles MD Work Phone: Start: 11-03-[address] Katiana Valles MD Work Phone: Comment on above: Antibody Result: Int erpretationNon-Reactive: Non- ImmuneReactive: ImmuneThe following results were obtained with the [employer] Rubella IgG assay. Results from assays of other manufacturers cannot be used interchangeably. Start: 11-03-2024 Serologic test for syphilis Dr. Katiana Valles MD Work Phone: Start: 10-31-2024 Liquid based cervica l cytology screening Dr. Katiana Valles MD Work Phone: Comment on above: NEGATIVE FOR INTRAEP ITHELIAL LESION OR MALIGNANCY. This liquid based Th inPrep(R) pap test was screened withthe use of an image guided system. The HPV DNA reflex c riteria were not met with this specimenresult therefore, no HPV testing was performed.Performed at: [address] [id number] Director: Sierra Ortiz MD, Phone: [phone] Start: 10-31-[address] Madina Valles MD Work Phone: Group B Streptococcu s Culture No Primary Care Physician Viral antigen assay No Prima ry Care Physician Plan of Treatment Date Care Activity Detail Author Start: 01-28-2025 Measurement of gluco se 2 hours after glucose challenge for glucose tolerance test [facility] Start: 01-28-2025 Serologic test for syphilis [facility] Start: 01-28-2025 [facility] Start: 10-31-2024 Liquid based cervica l cytology screening [facility] Start: 03-13-2023 End: 03-13-2023 [facility] Start: 12-04-2021 Patient discharge [facility] Work Phone: Start: 12-03-2021 Administration of medication [facility] Work Phone: Start: 12-03-2021 Application of ice c ollar, cap or bag [facility] Work Phone: Start: 12-03-2021 Catheterization of vein [facility] Work Phone: Start: 12-03-2021 Introduction of urin beni catheter [facility] Work Phone: Start: 12-03-2021 Measuring intake and output [facility] Work Phone: Start: 12-03-2021 Notification of physician [facility] Work Phone: Start: 12-03-2021 Procedure discontinued [facility] Work Phone: Start: 12-03-2021 Provision of activit y privileges [facility] Work Phone: Start: 12-03-2021 Vital signs measurements [facility] Work Phone: Start: 12-03-2021 [facility] Work Phone: Start: 12-02-2021 Admission procedure [facility] Work Phone: CBC W Auto Different ial panel - Blood [facility] CBC W Auto Different ial panel - Blood [facility] Chlamydia deoxyribon ucleic acid detection [facility] Hepatitis C antibody measurement [facility] Liquid based cervica l cytology screening [facility] Path report.final Dx Spec [facility] Patient Education ED Dental Pain [facility] Work Phone: Patient referral [facility] Work Phone: Procedure [facility] Rubella IgG measurement [facility] Serologic test for syphilis [facility] Work Phone: [facility] Payers Date Payer Category Payer Self-pay [id number] 2024 Medicaid [id number] 1995 Unknown [id number] [id number] Unknown SELF PAY INSURANCE [id number] Unknown [id number] 2.16.8 [id number] Unknown [id number] 2.16.8 [id number] Unknown [id number] 2.16.8 [id number] Unknown [id number] 2.16.8 [id number] Unknown [id number] 2.16.8 [id number] Unknown [id number] 2.16.8 [id number] Unknown [id number] 2.16.8 [id number] Unknown [id number] 2.16.8 [id number] Unknown [id number] 2.16.8 [id number] Unknown [id number] 2.16.8 [id number] Social History Date Type Detail Facility Start: 09-08-2021 End: 03-13-2023 Tobacco smoking status IAIS Unknown if ever smoked [facility] Start: 1995 Sex Assigned At Female [facility] Start: 10-10-2024 Tobacco smoking stat us NHIS Never smoked tobacco (finding) [facility] Sex Female [facility] Goals Date Patient Goal Desired Activity /State Clinical Notes 10-31-2024 to 01-28-2025 Note Date & Type Note Facility 01-28-2025 Progress note [facility] 12-07-2024 Radiology Diagnostic study note [facility] Imaging Services [address] [place] [address] Axilla - Left MR#: [id number] Acct: [id number] Name: DARLENE ANN Rep #: [id number] : 1995 F 29 From: Ruchi Guerra MD PCP: Dr. Yesi Hughes MD Status: REG CLI Study:Axilla - Left Date of Exam: Exam# [id number] Ordering Dr: Corrie [place] CNM EXAM: Left axillary ultrasound CLINICAL HISTORY: Left axillary palpable mass COMPARISON: No TECHNIQUE: Real-time ultrasound of the left axilla FINDINGS: There is normal accessory breast tissue in the left axillary region. There is no concerning abscess, mass or cyst. US/Axilla - Left IMPRESSION: No significant findings. Reading Location: [place] [address] CC: BRIAN [place]; Dr. Yesi Hughes MD ~ Vendor Analyst: Signed [facility] 12-01-2024 Progress note [facility] 10-31-2024 Evaluation note Diagnosis Onset Date Resolution LGSIL (low grade squamous intraepithelial dysplasia) acute October 31, 2024 2:21pm acute October 31 2:21pm Rubella non-immune status, antepartum acute October 31 2:21pm Supervision of normal acute October 31, 2024 2:21pm [facility] Work Phone: 1(338) 383-863006-20-2025 Evaluation note* Diagnosis Onset Date Resolution Status Admit Date LGSIL (low grade squamous intraepithelial dysplasia) acute October 31, 2024 2:21pm acute October 31 2:21pm Rubella non-immune status, antepartum acute October 31, 2024 2:21pm Supervision of normal acut e October 31, 2024 2:21pm LGSIL (low grade squamous intraepithelial dysplasia) acute December 01, 2024 10:49am acute December 01 10:49am Rubella non-immune status, antepartum acute December 01, 2024 10:49am Supervision of normal acut e December 01, 2024 10:49am [facility] Work Phone: 1(738) 939-568006-20-2025 Evaluation note* Diagnosis Onset Date Resolution Status Admit Date LGSIL (low grade squamous intraepithelial dysplasia) acute October 31, 2024 2:21pm acute October 31 2:21pm Rubella non-immune status, antepartum acute October 31, 2024 2:21pm Supervision of normal acut e October 31, 2024 2:21pm LGSIL (low grade squamous intraepithelial dysplasia) acute December 01, 2024 10:49am acute December 01 10:49am Rubella non-immune status, antepartum acute December 01, 2024 10:49am Supervision of normal acut e December 01, 2024 10:49am LGSIL (low grade squamous intraepithelial dysplasia) acute Augus 2024 10:15am acute December 31 10:15am Rubella non-immune status, antepartum acute December 31 10:15am Supervision of normal acut e December 31, 2024 10:15am [facility] Work Phone: [phone]) [phone] Evaluation note* Diagnosis Onset Date Resolution Status Admit Date LGSIL (low grade squamous intraepithelial dysplasia) acute October 31, 2024 2:21pm acute October 31 2:21pm Rubella non-immune status, antepartum acute October 31, 2024 2:21pm Supervision of normal acut e October 31, 2024 2:21pm LGSIL (low grade squamous intraepithelial dysplasia) acute December 01, 2024 10:49am acute December 01 10:49am Rubella non-immune status, antepartum acute December 01, 2024 10:49am Supervision of normal acut e December 01, 2024 10:49am LGSIL (low grade squamous intraepithelial dysplasia) acute 2024 10:15am acute December 31 10:15am Rubella non-immune status, antepartum acute December 31 10:15am Supervision of normal acut e December 31, 2024 10:15am LGSIL (low grade squamous intraepithelial dysplasia) acute Septe [id number] 10:03am acute January 10:03am Rubella non-immune status, antepartum acute January 28, 2025 10:03am Supervision of normal acut e January 28, 2025 10:03am [facility] Work Phone: Evaluation note* Diagnosis Onset Date Resolution Status H/O: depression acute acute Supervision of normal acute H/O: depression acute LGSIL (low grade squamous intraepithelial dysplasia) acute acute Supervision of normal acute H/O: depression acute LGSIL (low grade squamous intraepithelial dysplasia) acute acute Supervision of normal acute H/O: depression acute LGSIL (low grade squamous intraepithelial dysplasia) acute acute Pyelectasis of fetus on ultrasound acute Supervision of normal acute H/O: depression acute acute Pyelectasis of fetus on ultrasound acute Supervision of normal acute [facility] Work Phone: Evaluation note* Diagnosis Onset Date Resolution Status H/O: depression acute LGSIL (low grade squamous intraepithelial dysplasia) acute acute Pyelectasis of fetus on ultrasound acute Supervision of normal acute H/O: depression acute acute Pyelectasis of fetus on ultrasound acute Supervision of normal acute H/O: depression acute acute Pyelectasis of fetus on ultrasound acute Supervision of normal acute H/O: depression acute LGSIL (low grade squamous intraepithelial dysplasia) acute acute Pyelectasis of fetus on ultrasound acute Rubella non-immune status, antepartum acute Supervision of normal acute H/O: depression acute LGSIL (low grade squamous intraepithelial dysplasia) acute acute Pyelectasis of fetus on ultrasound acute Rubella non-immune status, antepartum acute Supervision of normal acute H/O: depression acute LGSIL (low grade squamous intraepithelial dysplasia) acute acute Pyelectasis of fetus on ultrasound acute Rubella non-immune status, antepartum acute Supervision of normal acute H/O: depression acute LGSIL (low grade squamous intraepithelial dysplasia) acute acute Pyelectasis of fetus on ultrasound acute Rubella non-immune status, antepartum acute Supervision of normal acute [facility] Work Phone: Evaluation note* Diagnosis Onset Date Resolution Status LGSIL (low grade squamous intraepithelial dysplasia) acute H/O: depression resolved resolved Pyelectasis of fetus on ultrasound resolved Supervision of normal resolved H/O: depression resolved resolved Pyelectasis of fetus on ultrasound resolved Supervision of normal resolved H/O: depression resolved resolved Pyelectasis of fetus on ultrasound resolved Supervision of normal resolved LGSIL (low grade squamous intraepithelial dysplasia) acute Rubella non-immune status, antepartum acute H/O: depression resolved resolved Pyelectasis of fetus on ultrasound resolved Supervision of normal resolved LGSIL (low grade squamous intraepithelial dysplasia) acute Rubella non-immune status, antepartum acute H/O: depression resolved resolved Pyelectasis of fetus on ultrasound resolved Supervision of normal resolved LGSIL (low grade squamous intraepithelial dysplasia) acute Rubella non-immune status, antepartum acute H/O: depression resolved resolved Pyelectasis of fetus on ultrasound resolved Supervision of normal resolved LGSIL (low grade squamous intraepithelial dysplasia) acute Rubella non-immune status, antepartum acute H/O: depression resolved resolved Pyelectasis of fetus on ultrasound resolved Supervision of normal resolved LGSIL (low grade squamous intraepithelial dysplasia) acute Rubella non-immune status, antepartum acute H/O: depression resolved resolved Pyelectasis of fetus on ultrasound resolved Supervision of normal resolved LGSIL (low grade squamous intraepithelial dysplasia) acute Rubella non-immune status, antepartum acute H/O: depression resolved resolved Pyelectasis of fetus on ultrasound resolved Supervision of normal resolved LGSIL (low grade squamous intraepithelial dysplasia) acute Rubella non-immune status, antepartum acute H/O: depression resolved resolved Pyelectasis of fetus on ultrasound resolved Supervision of normal resolved LGSIL (low grade squamous intraepithelial dysplasia) acute Rubella non-immune status, antepartum acute Vaginal delivery acute H/O: depression resolved resolved Pyelectasis of fetus on ultrasound resolved Supervision of normal resolved [facility] Work Phone: Evaluation noteNo assessment information available [facility] Work Phone: Hospital Discharge instructions Additional Instructions Please continue to [facility] a [facility] Work [facility]: Progress note Author Corrie [place] [facility] Note Date/Time December 01, 2024 11:0 8am [facility] [address] [place] [address], [address] [place] [address] OFFICE VISIT Date of Service: 12/01/24 MR#: [id number] Acct: [id number] Name: DARLENE ANN Rep #: [id number] : 1995 Provider: BRIAN [place] Age/Sex: 29/F Location: [facility] Status: Signed Intake Vital Signs 03/13/23 09:26 10/31/24 14:32 12/01/24 10:52 Height 5 ft 5 in 5 ft 5 in 5 ft 5 in Weight: 152 lb 6 oz BMI 25.3 BP 109/75 Intake Visit Reasons: 15wk ob Chief Complaint: 15wk OB Sales And Service Change Leader Required: No Is patient in pain?: No Allergies No Known Allergies Allergy (Verified 12/01/24 10:50) Medications ?Medication ?Instructions ?Recorded ?Confirmed ?Type multivit-min no.71-iron fum 28 cap PO 10/10/24 5 History mg-folate no.1 1 mg-dha 300 mg capsule ([facility]) Last Menstrual Period: 08/20/24 : No PFSH PFSH Medical History Vaginal delivery Pyelectasis of fetus on ultrasound Surgical History H/O oral surgery Family History Father CHF (congestive heart failure) Diabetes Grandmother CHF (congestive heart failure) paternal Social History adopted: No household members: significant other and children number of children: 1 current occupational status: employed current occupation: [employer] current occupational exposures/hazards: No pets and animals: Yes (Avoid litterbox) pets and animals: cat(s) and dog(s) history of recent travel: No sexually active: Yes Smoking Status: Never smoker second hand exposure: No alcohol intake: current alcohol intake frequency: holidays/special occasions only details: not while substance use type: does not use well-balanced diet: daily or most days caffeine: Yes Type: carbonated beverages Number of servings: 1 eating out: 1-3 times/week during the past year weight has: remained stable what type of physical activity do you participate in: yoga frequency: 1-2 times per week duration: 15-30 minutes/day wolf/denominational: Hinduism seatbelt use: always do you feel safe at home: Yes additional social history: Fianc?: [employer] History 2 Elective abortions Hx Para 1 Spontaneous abortions Hx # Term Pregnancies Ectopic pregnancies Hx # Pregnancies Multiple births # of living children 1 Past Pregnancies Del. Date Name GA/Weeks Outcome Route Bth Weight Infant Gen Labor Lgth Anesthesia Del Locatn Provider FOB 12/03/21 Rahul 40 live - full term 8#9oz Male epidur al [facility] Katiana Ledesma Delivery Date: 12/03/21 Last Updated by: Oneyda Louise see problem list for complications, and IAL 40 SM boy Rahul HPI 15wk ob Details: DARLENE ANN is a 29 year old who presents for routine OB visit. OB Visit NOA Calculator Estimated Delivery Date Method Current WG Current Estimate 05/27/25 LMP (Certain) 14w 5d Other Estimates 05/30/25 Ultrasound #1 14w 2d Expected Delivery Route/Plan Labor Preferences- CB/BF classes: [] labor support person: [] labor intervention preferences: [] pain management options preferred: [] cut cord/dad catch: [] : [] PP control planned: [] discussed possible routes of delivery and associated risks: [] special requests: [] Specific Issue/Plans Covid status: [] Flu vaccine: [] Tdap vaccine: [] Rhogam: [] LARC form signed: [] Problem list reviewed and updated with the most current plan of care details and appropriate orders placed. Relevant counseling for the gestational age provided. Continue routine care and follow up unless otherwise noted in visit notes/problem list details Initial Weight: Not Recorded Date -?-?-?-?-?-?-?-?-?-?-?-?- EGA Weight BP Urine Prot -?-?-?-?-?-?-?-?-?-?-?-?- Glucose FHR FuHt Pres Dilation -?-?-?-?-?-?-?-?-?-?-?-?- Effaced St Visit Note 10/31/24 -?-?-?-?-?-?-?-?-?-?-?-?- 10w 2d 154 lb 2 oz 119/80 -?-?-?-?-?-?-?-?-?-?-?-?- 160 -?-?-?-?-?-?-?-?-?-?-?-?- SM- CRL 3cm cons with LMP 12/01/24 -?-?-?-?-?-?-?-?-?-?-?-?- 14w 5d 152 lb 6 oz 109/75 Nega tive -?-?-?-?-?-?-?-?-?-?-?-?- Negative 158 -?-?-?-?-?-?-?-?-?-?-?-?- KW- no vb/crampi ng. +flutters. has a lump under her left axilla. US ordered. ACOG First Trimester First Trimester: Desire for , Alcohol, Tobacco Cessation, Illicit/Recreational Drug/Substance Use, Intimate Partner Violence, Barriers to care, Unstable Housing, Communication Barriers, Environmental/Work Hazards, Anticipated Course of Care, Toxoplasmosis Precations, Use of Any medications, Sexual activity, Exercise, Dental Care, Sauna/Hot tub use, Seat Belt use, Childbirth classes/Hospital facilities, Travel, Indications for Ultrasound and Screening for Aneuploidy; Discussed Second Trimester Second Trimester: Signs and Symptoms of Labor, Selecting a care provider, Reproductive Life Planning & Contreception, Care Planning, Depression/Anxiety and Intimate Partner Violence; Discussed Tobacco Cessation Third Trimester Third Trimester: Pain Management Plans, Labor support person(s), Immediate Larc, Circumcision preference, Movement Monitoring, Signs and Symptoms of Preeclampsia, Infant Feeding No and Education ROS Const Reports system reviewed and no additional complaints, except as documented Eyes Reports system reviewed and no additional complaints, except as documented ENT Reports system reviewed and no additional complaints, except as documented Card Reports system reviewed and no additional complaints, except as documented Resp Reports system reviewed and no additional complaints, except as documented GI Reports system reviewed and no additional complaints, except as documented, Denies nausea and Denies vomiting Reports system reviewed and no additional complaints, except as documented Musc Reports system reviewed and no additional complaints, except as documented Skin/Breast Reports system reviewed and no additional complaints, except as documented Neuro Yes system reviewed and no additional complaints, except as documented Psych Reports system reviewed and no additional complaints, except as documented Endo Reports system reviewed and no additional complaints, except as documented Bright/Lymph Reports system reviewed and no additional complaints, except as documented Aller/Immun Reports system reviewed and no additional complaints, except as documented Exam Const General: cooperative, healthy appearing and no acute distress Orientation: alert, awake and oriented x3 Neck Neck: normal visual inspection and full ROM Resp Effort & Inspection: normal respiratory effort, able to speak in complete sentences and symmetric chest movement GI Inspection: normal to inspection Palpation: soft and other Other: gravid Skin General: no rashes or lesions noted Neuro General: patient alert, patient awake and patient oriented x3 Cognition: normal cognition Speech: speech normal Gait: normal gait Motor: muscle tone normal throughout Extrem General: normal to inspection and full ROM Psych Appearance: grossly normal Mental Status: mental status grossly normal Mood: congruent mood Affect: normal affect Speech and Movement: speech and movement normal Attitude: cooperative Thought Process: normal Thought Content: normal Judgment: judgment good Results POC Urinalysis 2 Dip (Clinic) Office Urine Glucose Negative Last Edit by Constance Alexander on 12/01/24 10:56 Office Urine Protein Negative Last Edit by Constance Alexander on 12/01/24 10:56 Coding Level of Care Code Off vis,est,level 3 Diagnoses Supervision of normal Z34.90 14 weeks gestation of Z3A.14 Weeks of gestation: 14 weeks Rubella non-immune status, antepartum O09.899; Z28.39 LGSIL (low grade squamous intraepithelial dysplasia) Assessment and Plan Assessment and Plan (1) Supervision of normal : Status: Acute Comment: , NOA 05/27/25, Aliyah Lambert (2) : Status: Acute Qualifiers: Weeks of gestation: 14 weeks Qualified Code(s): Z3A.14 - 14 weeks gestation of Comment: elects NIPT: low risk, male, previous carrier testing negative (3) Rubella non-immune status, antepartum: Status: Acute Comment: MMR pp (4) LGSIL (low grade squamous intraepithelial dysplasia): Status: Acute Comment: colp CINI, repeat pap hpv 03/05 Orders: Orders POC Urinalysis 2 Dip (Clinic) Today Plan Details Additional Comments: ACOG trimester education reviewed and updated. see problem list details for updated plan management information and see below for orders placed at this visit. GA appropriate handout given. 12/01/24 1103 <Electronically signed by Corrie carlson CNM> Date _ Corrie [place] CNM Cosigner Signature: Date (if applicable) CC: ~ [facility] Work Phone: Progress note Author Darlene Brianne [facility] Note Date/Time January 28, 2025 10:18am [facility] [address] [place] [address], [address] [place] [address] OFFICE VISIT Date of Service: 01/28/25 MR#: [id number] Acct: [id number] Name: DARLENE ANN Rep #: [id number] : 1995 Provider: JOSE ALEJANDRO Decker Age/Sex: 30/F Location: [facility] Status: Signed Intake Vital Signs 10/31/24 14:32 12/31/24 10:23 01/28/25 10:03 Height 5 ft 5 in 5 ft 5 in 5 ft 5 in Weight: 160 lb 8 oz BMI 26.6 BP 101/74 Intake Visit Reasons: 23wk ob Chief Complaint: 23 Week OB Sales And Service Change Leader Required: No Is patient in pain?: No Allergies No Known Allergies Allergy (Verified 01/28/25 10:06) Medications 3 ?Medication ?Instructions ?Recorded ?Confirmed ?Type multivit-min no.71-iron fum 28 cap PO 10/10/24 5 History mg-folate no.1 1 mg-dha 300 mg capsule (PNV-[place]) Last Menstrual Period: 08/20/24 Zika: Zika virus screening: Negative : No PFSH PFSH Medical History Vaginal delivery Pyelectasis of fetus on ultrasound Surgical History H/O oral surgery Family History Father CHF (congestive heart failure) Diabetes Grandmother CHF (congestive heart failure) paternal Social History adopted: No household members: significant other and children number of children: 1 current occupational status: employed current occupation: [employer] current occupational exposures/hazards: No pets and animals: Yes (Avoid litterbox) pets and animals: cat(s) and dog(s) history of recent travel: No sexually active: Yes Smoking Status: Never smoker second hand exposure: No alcohol intake: current alcohol intake frequency: holidays/special occasions only details: not while substance use type: does not use well-balanced diet: daily or most days caffeine: Yes Type: carbonated beverages Number of servings: 1 eating out: 1-3 times/week during the past year weight has: remained stable what type of physical activity do you participate in: yoga frequency: 1-2 times per week duration: 15-30 minutes/day wolf/denominational: Hinduism seatbelt use: always do you feel safe at home: Yes additional social history: Fianc?: [employer] History 2 Elective abortions Hx Para 1 Spontaneous abortions Hx # Term Pregnancies Ectopic pregnancies Hx # Pregnancies Multiple births # of living children 1 Past Pregnancies Del. Date Name GA/Weeks Outcome Route Bth Weight Gen Labor Lgth Anesthesia Del Locatn Provider FOB 12/03/21 Rahul 40 live - full term 8#9oz Male epidur al [facility] Katiana Ledesma Delivery Date: 12/03/21 Last Updated by: Oneyda Louise see problem list for complications, and IAL 40 SM boy Rahul HPI 23wk ob Details: DARLENE ANN is a 30 year old who presents for routine OB visit. OB Visit NOA Calculator Estimated Delivery Date Method Current WG Current Estimate 05/27/25 LMP (Certain) 23w 0d Other Estimates 05/30/25 Ultrasound #1 22w 4d Expected Delivery Route/Plan Labor Preferences- CB/BF classes: [] labor support person: [] labor intervention preferences: [] pain management options preferred: [] cut cord/dad catch: [] : [] PP control planned: [] discussed possible routes of delivery and associated risks: [] special requests: [] Specific Issue/Plans Covid status: [] Flu vaccine: [] Tdap vaccine: [] Rhogam: [] LARC form signed: [] Problem list reviewed and updated with the most current plan of care details and appropriate orders placed. Relevant counseling for the gestational age provided. Continue routine care and follow up unless otherwise noted in visit notes/problem list details Initial Weight: Not Recorded Date -?-?-?-?-?-?-?-?-?-?-?-?- EGA Weight BP Urine Prot -?-?-?-?-?-?-?-?-?-?-?-?- Glucose FHR FuHt Pres Dilation -?-?-?-?-?-?-?-?-?-?-?-?- Effaced St Visit Note 10/31/24 -?-?-?-?-?-?-?-?-?-?-?-?- 10w 2d 154 lb 2 oz 119/80 -?-?-?-?-?-?-?-?-?-?-?-?- 160 -?-?-?-?-?-?-?-?-?-?-?-?- SM- CRL 3cm cons with LMP 12/01/24 -?-?-?-?-?-?-?-?-?-?-?-?- 14w 5d 152 lb 6 oz 109/75 Nega tive -?-?-?-?-?-?-?-?-?-?-?-?- Negative 158 -?-?-?-?-?-?-?-?-?-?-?-?- KW- no vb/crampi ng. +flutters. has a lump under her left axilla. US ordered. 12/31/24 -?-?-?-?-?-?-?-?-?-?-?-?- 19w 0d 154 lb 107/72 Negative -?-?-?-?-?-?-?-?-?-?-?-?- Negative 143 -?-?-?-?-?-?-?-?-?-?-?-?- JV- no lof, vagi nal bleeding, or cramping. does have some upper abdominal pressure and migraines. she declines medication at this time. offered promethazine. has anatomy scan on 01/0501/28/25 -?-?-?-?-?-?-?-?-?-?-?-?- 23w 0d 160 lb 8 oz 101/74 -?-?-?-?-?-?-?-?-?-?-?-?- 161 -?-?-?-?-?-?-?-?-?-?-?-?- MH-No VB. William stevens. Denies concerns. Larc ACOG First Trimester First Trimester: Desire for , Alcohol, Tobacco Cessation, Illicit/Recreational Drug/Substance Use, Intimate Partner Violence, Barriers to care, Unstable Housing, Communication Barriers, Environmental/Work Hazards, Anticipated Course of Care, Toxoplasmosis Precations, Use of Any medications, Sexual activity, Exercise, Dental Care, Sauna/Hot tub use, Seat Belt use, Childbirth classes/Hospital facilities, Travel, Indications for Ultrasound and Screening for Aneuploidy; Discussed Second Trimester Second Trimester: Signs and Symptoms of Labor, Selecting a care provider, Reproductive Life Planning & Contreception, Care Planning, Depression/Anxiety and Intimate Partner Violence; Discussed Tobacco Cessation Third Trimester Third Trimester: Pain Management Plans, Labor support person(s), Immediate Larc, Circumcision preference, Movement Monitoring, Signs and Symptoms of Preeclampsia, Feeding No and Sawyer Education ROS Const Reports system reviewed and no additional complaints, except as documented GI Denies abdominal pain, Denies nausea and Denies vomiting Exam Const General: cooperative Nutritional Appearance: well nourished GI Palpation: soft, nontender and other (gravid) Coding Level of Care Code Off vis,est,level 3 Diagnoses Encounter for supervision of other normal in second trimester Z34.82 Normal : other normal Trimester: second trimester 23 weeks gestation of Z3A.23 Weeks of gestation: 23 weeks Rubella non-immune status, antepartum O09.899; Z28.39 LGSIL (low grade squamous intraepithelial dysplasia) Assessment and Plan Assessment and Plan (1) Supervision of normal : Status: Acute Qualifiers: Normal : other normal Trimester: second trimester Qualified Code(s): Z34.82 - Encounter for supervision of other normal , second trimester Comment: , NOA 05/27/25, Aliyah Lambert (2) : Status: Acute Qualifiers: Weeks of gestation: 23 weeks Qualified Code(s): Z3A.23 - 23 weeks gestation of Comment: elects NIPT: low risk, male, previous carrier testing negative (3) Rubella non-immune status, antepartum: Status: Acute Comment: MMR pp (4) LGSIL (low grade squamous intraepithelial dysplasia): Status: Acute Comment: colp CINI, repeat pap hpv 03/05. 10/2024 neg. rpt 1 yr Orders: Orders POC Urinalysis 2 Dip (Clinic) Today CBC W/Diff, Automated Today Z34.90 - Encounter for supervision of normal , unspecified, unspecified trimester Glucose Challenge Gest 1H 50g Today Z13.1 - Encounter for screening for diabetes mellitus, Z34.90 - Encounter for supervision of normal , unspecified, unspecified trimester HIV Today Z34.90 - Encounter for supervision of normal , unspecified, unspecified trimester Syphilis Antibodies Today Z34.90 - Encounter for supervision of normal , unspecified, unspecified trimester Plan problem list reviewed and updated for most current plan of care and appropriate orders placed. Relevant counseling for the gestational age appropriate provided and ACOG education checklist updated. Continue routine care and follow up. 01/28/25 1018 <Electronically signed by Darlene carlson POLYMER SCIENTIST POLYMER SCIENTIST-C> Date _ Darlene Decker NP POLYMER SCIENTIST-C Cosigner Signature: Date (if applicable) CC: ~ [facility] Work Phone: Reason for referral (narrative)No reason for referral information availableJohn F. Kennedy [facility] Work Phone: Chief Complaint and Reason for Visit Chief Complaint 12WK OB Colposcopy COLPOSCOPY 20wk ob est ob 25w 28WK / GLUCOSE Reason for Visit H/O: depression Supervision of normal H/O: depression LGSIL (low grade squamous intraepithelial dysplasia) Supervision of normal H/O: depression LGSIL (low grade squamous intraepithelial dysplasia) Supervision of normal H/O: depression LGSIL (low grade squamous intraepithelial dysplasia) Pyelectasis of fetus on ultrasound Supervision of normal H/O: depression Pyelectasis of fetus on ultrasound Supervision of normal Chief Complaint est ob 25w 28WK / GLUCOSE 30 WK OB 32 WK OB 34 WK OB 36 WK OB 37 wk ob Reason for Visit H/O: depression LGSIL (low grade squamous intraepithelial dysplasia) Pyelectasis of fetus on ultrasound Supervision of normal H/O: depression Pyelectasis of fetus on ultrasound Supervision of normal H/O: depression Pyelectasis of fetus on ultrasound Supervision of normal H/O: depression LGSIL (low grade squamous intraepithelial dysplasia) Pyelectasis of fetus on ultrasound Rubella non-immune status, antepartum Supervision of normal H/O: depression LGSIL (low grade squamous intraepithelial dysplasia) Pyelectasis of fetus on ultrasound Rubella non-immune status, antepartum Supervision of normal H/O: depression LGSIL (low grade squamous intraepithelial dysplasia) Pyelectasis of fetus on ultrasound Rubella non-immune status, antepartum Supervision of normal H/O: depression LGSIL (low grade squamous intraepithelial dysplasia) Pyelectasis of fetus on ultrasound Rubella non-immune status, antepartum Supervision of normal Chief Complaint est ob 25w 28WK / GLUCOSE 30 WK OB 32 WK OB 34 WK OB 36 WK OB 37 wk ob 38 WK OB 39 WK OB 40 WK OB LABOR/DELIVERY LABOR/DELIVERY LABOR/DELIVERY Reason for Visit LGSIL (low grade squ amous intraepithelial dysplasia) H/O: depression Pyelectasis of fetus on ultrasound Supervision of normal H/O: depression Pyelectasis of fetus on ultrasound Supervision of normal H/O: depression Pyelectasis of fetus on ultrasound Supervision of normal LGSIL (low grade squamous intraepithelial dysplasia) Rubella non-immune status, antepartum H/O: depression Pyelectasis of fetus on ultrasound Supervision of normal LGSIL (low grade squamous intraepithelial dysplasia) Rubella non-immune status, antepartum H/O: depression Pyelectasis of fetus on ultrasound Supervision of normal LGSIL (low grade squamous intraepithelial dysplasia) Rubella non-immune status, antepartum H/O: depression Pyelectasis of fetus on ultrasound Supervision of normal LGSIL (low grade squamous intraepithelial dysplasia) Rubella non-immune status, antepartum H/O: depression Pyelectasis of fetus on ultrasound Supervision of normal LGSIL (low grade squamous intraepithelial dysplasia) Rubella non-immune status, antepartum H/O: depression Pyelectasis of fetus on ultrasound Supervision of normal LGSIL (low grade squamous intraepithelial dysplasia) Rubella non-immune status, antepartum H/O: depression Pyelectasis of fetus on ultrasound Supervision of normal LGSIL (low grade squamous intraepithelial dysplasia) Rubella non-immune status, antepartum H/O: depression Pyelectasis of fetus on ultrasound Supervision of normal LGSIL (low grade squamous intraepithelial dysplasia) Rubella non-immune status, antepartum Vaginal delivery H/O: depression Pyelectasis of fetus on ultrasound Supervision of normal Chief Complaint DENTAL Chief Complaint Admit Date *EST* NOB LMP 4, NOA 05/28October 31, 2024 2:21pm Reason for Visit Admit Date LGSIL (low grade squamous intraepithelia l dysplasia) October 31, 2024 2:21pm October 31, 2024 2:21 pm Rubella non-immune status, antepartum Ju ne 2024 2:21pm Supervision of normal October 2:21pm Chief Complaint Admit Date *EST* NOB LMP 08/21, NOA 05/28October 31, 2024 2:21pm 15wk ob December 01, 2024 10:4 9am Reason for Visit Admit Date LGSIL (low grade squamous intraepithelia l dysplasia) October 31, 2024 2:21pm October 31, 2024 2:21 pm Rubella non-immune status, antepartum Ju ne 2024 2:21pm Supervision of normal October 2:21pm LGSIL (low grade squamous intraepithelia l dysplasia) December 01, 2024 10:49am December 01, 2024 10:4 9am Rubella non-immune status, antepartum Ju ly 2024 10:49am Supervision of normal November 10:49am Chief Complaint Admit Date *EST* NOB LMP 4/10, NOA 05/28October 31, 2024 2:21pm 15wk ob December 01, 2024 10:4 9am LT AXILLARY MASS December 05, 2024 1:06 pm Chief Complaint Admit Date *EST* NOB LMP 4/10, NOA 05/28October 31, 2024 2:21pm 15wk ob December 01, 2024 10:4 9am LT AXILLARY [place] December 05, 2024 1:06 pm 19wk ob December 31, 2024 10 :15am Reason for Visit Admit Date LGSIL (low grade squamous intraepithelia l dysplasia) October 31, 2024 2:21pm October 31, 2024 2:21 pm Rubella non-immune status, antepartum Ju ne 2024 2:21pm Supervision of normal October 2:21pm LGSIL (low grade squamous intraepithelia l dysplasia) December 01, 2024 10:49am December 01, 2024 10:4 9am Rubella non-immune status, antepartum Ju ly 2024 10:49am Supervision of normal November 10:49am LGSIL (low grade squamous intraepithelia l dysplasia) December 31, 2024 10:15am December 31, 2024 10 :15am Rubella non-immune status, antepartum [place] 2024 10:15am Supervision of normal December 132024 10:15am Chief Complaint Admit Date *EST* NOB LMP 4/10, NOA 05/28October 31, 2024 2:21pm 15wk ob December 01, 2024 10:4 9am LT AX[place]ARY [place] December 05, 2024 1:06 pm 19wk ob December 31, 2024 10 :15am 23wk ob January 28, 2025 10:03am Reason for Visit Admit Date LGSIL (low grade squamous intraepithelia l dysplasia) October 31, 2024 2:21pm October 31, 2024 2:21 pm Rubella non-immune status, antepartum Ju ne 2024 2:21pm Supervision of normal October 2:21pm LGSIL (low grade squamous intraepithelia l dysplasia) December 01, 2024 10:49am December 01, 2024 10:4 9am Rubella non-immune status, antepartum Ju 2024 10:49am Supervision of normal November 10:49am LGSIL (low grade squamous intraepithelia l dysplasia) December 31, 2024 10:15am December 31, 2024 10 :15am Rubella non-immune status, antepartum [place] 2024 10:15am Supervision of normal December 132024 10:15am LGSIL (low grade squamous intraepithelia l dysplasia) January 28, 2025 10:03am January 28, 2025 10:03am Rubella non-immune status, antepartum Se ptember 2024 10:03am Supervision of normal Septembe r 2024 10:03am Family History No Family History Records Found Relationship Condition Age at Onset Recorded Date/T altagracia Not Specified Diabetes mellitus Unknown Congestive heart failure Unknown Relationship Condition Age at Onset Recorded Date/T altagracia father Congestive heart failure Unknown Diabetes mellitus Unknown grandmother Congestive heart failure Unknown Advance Directives No Advanced Directives Records Found Advance Directive Response Recorded Date/ Time Living Will No December 02, 2021 9:24pm Power of Utility Clerk No December 02 9:24pm Advance Directive Response Recorded Date/ Time Living Will No March 13 9:44am Power of Utility Clerk No March 13, 2023 9:44am Summary Purpose Additional Source Comments Goals (unrecognized section and content) Type Care Experience svdLabor Preferences -CB/BF classes: encouragedlabor support person: Baltazarlabor intervention preferences: []pain management options preferred: limited interventioncut cord/dad catch: maybebreastfeeding: yesPP control planned: discussed discussed possible routes of delivery and associated risks: []special requests: [] Care Experience Labor Preferences-CB /BF classes: []labor support person: []labor intervention preferences: []pain management options preferred: []cut cord/dad catch: []: []PP control planned: []discussed possible routes of delivery and associated risks: []special requests: [] Care Teams (unrecognized sec tion and content) Team Status: Active Member Role Status Dates Suze Masters , Primary Care Provider Active Team Status: Inactive Member Role Status Dates Dr. Shiv Melara DO Emergency Provider Active Suze Masters , Primary Care Provider Active Team Status: Inactive Member Role Status Dates Dr. Katiana Valles MD Attending Provider Active Start: October 31, 2024 End: October 31, 2024 Team Status: Inactive Member Role Status Dates Dr. Katiana Valles MD Attending Provider Active Start: October 31, 2024 End: October 31, 2024 Dr. Katiana Valles MD Referring Provider Active Start: October 31, 2024 End: October 31, 2024 Team Status: Active Member Role Status Dates Dr. Katiana Valles MD Attending Provider Active Start: November 03, 2024 Dr. Katiana Valles MD Referring Provider Active Start: November 03, 2024 Team Status: Inactive Member Role Status Dates Dr. Katiana Valles MD Attending Provider Active Start: November 03, 2024 End: November 03, 2024 Dr. Katiana Valles MD Referring Provider Active Start: November 03, 2024 End: November 03, 2024 Team Status: Inactive Member Role/Relationship Status Dates Dr. Katiana Valles MD Attending Provider Active Start: October 31, 2024 End: October 31, 2024 Team Status: Inactive Member Role/Relationship Status Dates Dr. Katiana Valles MD Attending Provider Active Start: October 31, 2024 End: October 31, 2024 Dr. Katiana Valles MD Referring Provider Active Start: October 31, 2024 End: October 31, 2024 Team Status: Inactive Member Role/Relationship Status Dates Dr. Katiana Valles MD Attending Provider Active Start: November 03, 2024 End: November 03, 2024 Dr. Katiana Valles MD Referring Provider Active Start: November 03, 2024 End: November 03, 2024 Team Status: Inactive Member Role/Relationship Status Dates Corrie Johnson CNM Attending Provider Active S tart: December 01, 2024 End: December 01, 2024 Team Status: Active Member Role/Relationship Status Dates Dr. Yesi Hughes MD Primary Care Provider Active Team Status: Inactive Member Role/Relationship Status Dates Dr. Katiana Valles MD Attending Provider Active Start: October 31, 2024 End: October 31, 2024 Team Status: Inactive Member Role/Relationship Status Dates Dr. Katiana Valles MD Attending Provider Active Start: October 31, 2024 End: October 31, 2024 Dr. Katiana Valles MD Referring Provider Active Start: October 31, 2024 End: October 31, 2024 Team Status: Inactive Member Role/Relationship Status Dates Dr. Katiana Valles MD Attending Provider Active Start: November 03, 2024 End: November 03, 2024 Dr. Katiana Valles MD Referring Provider Active Start: November 03, 2024 End: November 03, 2024 Team Status: Inactive Member Role/Relationship Status Dates Corrie Johnson CNM Attending Provider Active S tart: December 01, 2024 End: December 01, 2024 Team Status: Inactive Member Role/Relationship Status Dates Corrie Johnson CNM Attending Provider Active S tart: December 05, 2024 End: December 05, 2024 Corrie Johnson CNM Referring Provider Active S tart: December 05, 2024 End: December 05, 2024 Dr. Yesi Hughes MD Primary Care Provider Active Start: December 05, 2024 End: December 05, 2024 Team Status: Inactive Member Role/Relationship Status Dates Dr. Emily Diamond DO Attending Provider Activ e Start: December 31, 2024 End: December 31, 2024 Dr. Yesi Hughes MD Primary Care Provider Active Start: December 31, 2024 End: December 31, 2024 Dr. Yesi Hughes MD Referring Provider Active Start: December 31, 2024 End: December 31, 2024 Team Status: Active Member Role/Relationship Status Dates Dr. Yesi Hughes MD Primary care physician Active Team Status: Inactive Member Role/Relationship Status Dates Dr. Katiana Valles MD Attending physician Active Start: October 31, 2024 End: October 31, 2024 Team Status: Inactive Member Role/Relationship Status Dates Dr. Katiana Valles MD Attending physician Active Start: October 31, 2024 End: October 31, 2024 Dr. Katiana Vallse MD Referring Provider Active Start: October 31, 2024 End: October 31, 2024 Team Status: Inactive Member Role/Relationship Status Dates Dr. Katiana Valles MD Attending physician Active Start: November 03, 2024 End: November 03, 2024 Dr. Katiana Valles MD Referring Provider Active Start: November 03, 2024 End: November 03, 2024 Team Status: Inactive Member Role/Relationship Status Dates Corrie Johnson CNM Attending physician Active Start: December 01, 2024 End: December 01, 2024 Team Status: Inactive Member Role/Relationship Status Dates Corrie Johnson CNM Attending physician Active Start: December 05, 2024 End: December 05, 2024 Corrie Johnosn CNM Referring Provider Active S tart: December 05, 2024 End: December 05, 2024 Dr. Yesi Hughes MD Primary care physician Active Start: December 05, 2024 End: December 05, 2024 Team Status: Inactive Member Role/Relationship Status Dates Dr. Emily Diamond DO Attending physician Acti ve Start: December 31, 2024 End: December 31, 2024 Dr. Yesi Hughes MD Primary care physician Active Start: December 31, 2024 End: December 31, 2024 Dr. Yesi Hughes MD Referring Provider Active Start: December 31, 2024 End: December 31, 2024 Team Status: Inactive Member Role/Relationship Status Dates Darlene Decker POLYMER SCIENTIST, POLYMER SCIENTIST-C Attending physician Active Start: January 28, 2025 End: January 28, 2025 Dr. Yesi Hughes MD Primary care physician Active Start: January 28, 2025 End: January 28, 2025 Dr. Yesi Hughes MD Referring Provider Active Start: January 28, 2025 End: January 28, 2025 INFORMATION SOURCE (unrecogn ized section and content) DATE CREATED AUTHOR 01/06/2025 [facility] DATE CREATED AUTHOR AUTHOR'S ORGANIZ ATION 03/09/2025 [facility] FOR RECORDS PERTAINING TO PATIENTS WHO ARE OR HAVE BEEN ENROLLED IN A CHEMICAL DEPENDENCY/SUBSTANCEABUSE PROGRAM, SOME INFORMATION MAY BE OMITTED. This clinical summary was aggregated from multiple sources. Caution should be exercised in using it in the provision of clinical care. This summary normalizes information from multiple sources, and as a consequence, information in this document may materially change the coding, format and clinical context of patient data. In addition, data may be omitted in some cases. CLINICAL DECISIONS SHOULD BE BASED ON THE PRIMARY CLINICAL RECORDS. [facility] [employer] [facility] provides no warranty or guarantee of the accuracy or completeness of information in this document.
[2025-03-10 07:20] LABS: Glucose GTT-Gestation. Fasting 90 mg/dL (<105)
[2025-03-10 10:39] LABS: Glucose GTT-Gestational 1 Hr 140 mg/dL (<190)
[2025-03-10 10:42] LABS: Glucose GTT-Gestational 2 Hr 127 mg/dL (<165)
[2025-03-10 11:45] LABS: Glucose GTT-Gestational 3 Hr 105 L (<145)
== END | disposition home or self-care (01) ==
PROVIDERS: PCP Family Medicine; Referring Provider Nurse Practitioner Women's Health; Visit Provider Nurse Practitioner Women's Health
DX: Z13.1 Encounter for screening for diabetes mellitus (principal)
CPT/HCPCS: 36415; 82951; 82952

== ENCOUNTER → 2025-04-29 | Outpatient (CLI) | payer BC, SELFPAY | END | disposition home or self-care (01) | LOC: LAB 15:29 | PROVIDERS: PCP Family Medicine; Referring Provider Obstetrics & Gynecology; Visit Provider Obstetrics & Gynecology | DX: Z34.83 Encounter for supervision of other normal pregnancy, third trimester (principal) | CPT/HCPCS: 87081 ==